=== PATIENT | female | born 1970 | race Caucasian/White ===

== ENCOUNTER 2021-06-30 13:14 | Inpatient (IN) ==
[2021-06-30] MEDS ORDERED: DECADRON IVP ONE (13:32)
[2021-06-30] MEDS ORDERED: VENTOLIN HFA (PER PUFF-WITH SPACER) IH ONE (13:32)
--- NOTE | 2021-06-30 13:37 | ED.PDOC ---
General ED Provider: Dr. DELONTE HUTTON MD Chief Complaint: Respiratory Complaint Stated Complaint: mild to mod shortness of breath and dry cough off and on getting worse since covid + diagnosed last Thursday, no covid vaccine, +obesity, not on home oxygen, [id number] 89% Time Seen by Provider: 06/30/21 13:25 Mode of Arrival: Wheelchair Information Source: Patient Primary Care Provider: ANNABELLA MOURA MD Nursing and Triage Documentation Reviewed and Agree: Yes Does patient meet sepsis criteria?: No System Inflammatory Response Syndrome: Not Applicable Sepsis Protocol: For patient's 13 years and over: Temp is 96.8 and below OR 101 and greater Pulse >90 BPM Resp >20/minute Acutely Altered Mental Status Are patient's symptoms suggestive of a new infection, such as: -Pneumonia -Skin, Soft Tissue -Endocarditis -UTI -Bone, Joint Infection -Implantable Device -Acute Abdominal Infection -Wound Infection -Meningitis -Blood Stream Catheter Infection -Unknown Review of Systems Review Of Systems Constitutional: Reports Malaise; Denies Fever Eyes: Denies Vision change Ears, Nose, Mouth, Throat: Denies Throat pain Respiratory: Reports Cough and Short of air; Denies Stridor Cardiac: Denies Chest pain GI: Denies Abdominal pain : Denies Dysuria Musculoskeletal: Denies Neck pain Skin: Denies Cyanosis Neurological: Denies Cognitive dysfunction All Other Systems: Other [facility] Medical History (Updated 06/30/21 @ 15:11 by DELONTE HUTTON MD) Obesity Osteoarthritis of right knee Female Reproductive History Menstrual Hx Hysterectomy: No Hx Tubal Ligation: No Physical Exam Physical Exam Appearance: Reports Ill-appearing Ill-appearing: Mild Pain Distress: None Eyes: Reports Conjunctiva clear ENT: Denies Rhinorrhea Neck: Supple Respiratory: Reports Airway patent and Breath sounds clear Cardiovascular: Reports RRR GI/: Reports Soft and Nontender Musculoskeletal: Reports ROM intact Skin: Reports Warm and Dry Neurological: Reports Alert and Oriented Psychiatric: Reports Affect appropriate Interpretation Radiology Interpretation Radiology Interpretation By: Radiologist Exam Interpreted: CXR Xray Comments: bilateral ground glass opacities EKG Interpretation Time of EKG #1: 15:07 Rate: Normal Rhythm: Sinus Interpretation: no stemi Critical Care Note Critical Care Note Total Critical Care Time (mins): 0 Course Course Hematology/Chemistry: 06/30/21 13:10 06/30/21 13:10 Orders, Labs, Meds: Lab Review 12/12/21 12/12/21 12/12/21 13:10 13:10 13:45 WBC 3.17 L RBC 4.60 Hgb 12.0 Hct 38.0 MCV 82.6 MCH 26.1 L MCHC 31.6 L RDW Coeff of [place] 14.6 Plt Count 216 Immature Gran % (Auto) 0.3 Neut % (Auto) 73.5 Lymph % (Auto) 16.4 [place] % (Auto) 9.5 Eos % (Auto) 0.0 Baso % (Auto) 0.3 Neut # (Auto) 2.3 Lymph # (Auto) 0.5 L [place] # (Auto) 0.3 L Eos # (Auto) 0.0 Baso # (Auto) 0.0 Immature Gran # (Auto) 0.0 Puncture Site R rad Base Excess 3.2 H O2 Saturation 96.5 ABG pH 7.52 H* ABG pCO2 32.0 L ABG pO2 76.0 L ABG HCO3 26.1 ABG Total CO2 27.1 H Vladimir Test Yes Hemoglobin 1.2 Oxyhemoglobin 94.9 L Carboxyhemoglobin 1.4 Total Hemoglobin 11.9 O2 Delivery Device Cannula Oxygen Liter Flow 2.00 Sodium 137.6 Potassium 5.23 H Chloride 103.2 Carbon Dioxide 29.3 Anion Gap 10.33 BUN 8.2 Creatinine 0.56 L Estimated GFR (MDRD) 114.00 BUN/Creatinine Ratio 14.64 Glucose 102.6 Lactic Acid Calcium 8.74 Total Bilirubin 1.18 AST 61.8 H ALT 31.4 Alkaline Phosphatase 62.9 Troponin I < 0.012 Total Protein 7.99 Albumin 4.33 Globulin 3.66 Albumin/Globulin Ratio 1.18 06/30/21 13:48 WBC RBC Hgb Hct MCV MCH MCHC RDW Coeff of [place] Plt Count Immature Gran % (Auto) Neut % (Auto) Lymph % (Auto) [place] % (Auto) Eos % (Auto) Baso % (Auto) Neut # (Auto) Lymph # (Auto) [place] # (Auto) Eos # (Auto) Baso # (Auto) Immature Gran # (Auto) Puncture Site Base Excess O2 Saturation ABG pH ABG pCO2 ABG pO2 ABG HCO3 ABG Total CO2 Vladimir Test Hemoglobin Oxyhemoglobin Carboxyhemoglobin Total Hemoglobin O2 Delivery Device Oxygen Liter Flow Sodium Potassium Chloride Carbon Dioxide Anion Gap BUN Creatinine Estimated GFR (MDRD) BUN/Creatinine Ratio Glucose Lactic Acid 0.80 Calcium Total Bilirubin AST ALT Alkaline Phosphatase Troponin I Total Protein Albumin Globulin Albumin/Globulin Ratio Orders Category Date Time Status ABG DRAW REQUEST Stat CARDIO 06/30/21 13:32 Completed EKG-(ED ONLY) Stat CARDIO 06/30/21 13:32 Completed METERED DOSE INHALATION Routine CARDIO 06/30/21 13:32 Completed OXYGEN [ED APPLY O2] .ONCE EMERGENCY 06/30/21 13:32 Active ABG COOX Stat LAB 06/30/21 13:45 Completed CBC W/ AUTO DIFF Stat LAB 06/30/21 13:10 Completed CMP [COMPREHENSIVE METABOLIC PANEL] Stat LAB 06/30/21 13:10 Completed LACTIC ACID Stat LAB 06/30/21 13:48 Completed TROPONIN I Stat LAB 06/30/21 13:10 Completed Albuterol Inhaler(with Spacer) [Ventolin Hfa (Per Puff- MEDS 06/30/21 13:32 Discontinued with Spacer)] 2 puff IH ONCE ONE Dexamethasone Sod Phosphate [Decadron] MEDS 06/30/21 13:32 Discontinued 6 mg IVP ONCE ONE CHEST, 1V AP ONLY Stat RADS 06/30/21 13:32 Completed Medications Discontinued Medications Generic Name Dose Route Start Last Admin Trade Name Freq PRN Reason Stop Dose Admin Albuterol Sulfate 2 puff 06/30/21 13:32 06/30/21 13:57 Albuterol Sulfate (Ventolin Hfa) 18 Gm 1 Puff With Spacer IH 06/30/21 13:33 2 puff ONCE ONE Administration Dexamethasone Sodium Phosphate 6 mg 06/30/21 13:32 06/30/21 13:38 Dexamethasone Sod Phos 10 Mg/Ml Inj IVP 06/30/21 13:33 10 mg ONCE ONE Administration Vital Signs: Temp Pulse Resp BP Pulse Ox 06/30/21 14:19 77 21 166/87 H 97 06/30/21 13:50 86 20 166/80 H 97 06/30/21 13:15 98.5 F 86 24 165/94 H 92 L Discharge Plan Discharge Patient Disposition: ADMITTED INPATIENT Discharge Problem: Pneumonia due to COVID-19 virus Prescriptions: No Action No Reported Medications 0 Qty: 0 0RF ED Provider: DELONTE HUTTON Condition: Stable Physician Progress Note: []pt admitted to covid unit with covid pneumonia and hypoxia
[2021-06-30 13:41] LABS: BASOPHILS % (AUTO) 0.3 % (0.0-3.0); IMMATURE GRANULOCYTE % (AUTO) 0.3 % (0.0-5.0); LYMPHOCYTES % (AUTO) 16.4 (10.0-50.0); MEAN CORPUSCULAR HEMOGLOBIN 26.1 pg (27.0-31.0); MEAN CORPUSCULAR HGB CONC 31.6 (31.8-35.4); MEAN CORPUSCULAR VOLUME 82.6 fl (81.0-99.0); MONOCYTES # (AUTO) 0.3 K/uL (0.4-2.0); MONOCYTES % (AUTO) 9.5 (0-10); NEUTROPHILS # (AUTO) 2.3 K/ul (2.0-6.9); NEUTROPHILS % (AUTO) 73.5 % (42.2-75.2); PLATELET COUNT 216 10^3/uL (140-440); RDW COEFFICIENT OF VARIATION 14.6 % (11.6-14.8); WHITE BLOOD COUNT 3.17 K/ul (4.6-10.2)
[2021-06-30 13:53] LABS: ABG O2 HGB 94.9 % (95-100); BEecf 3.2 (-2.0-3.0); COHb 1.4 (0.5-1.5); HCO3 26.1 (21-28); MetHb 1.2 (0-1.5); TCO2 27.1 (19-24); sO2 96.5 % (94-98); tHb 11.9 g/dl (11.7-17.4)
[2021-06-30 13:55] LABS: ABG PH 7.52 (7.35-7.45)
[2021-06-30 13:58] LABS: ALANINE AMINOTRANSFERASE 31.4 U/L (0-35); ALBUMIN 4.33 g/dL (3.5-5.0); ALKALINE PHOSPHATASE 62.9 U/L (38-126); ASPARTATE AMINO TRANSFERASE 61.8 U/L (14-36); BILIRUBIN,TOTAL 1.18 mg/dL (0.2-1.3); BLOOD UREA NITROGEN 8.2 mg/dL (7-17); CALCIUM 8.74 mg/dL (8.4-10.2); CARBON DIOXIDE 29.3 mmol/L (22-30.0); CHLORIDE 103.2 mmol/L (98-107); CREATININE 0.56 mg/dL (0.60-1.30); GLUCOSE 102.6 mg/dL (74-106); POTASSIUM 5.23 mmol/L (3.5-5.1); SODIUM 137.6 mmol/L (134.5-145); TOTAL PROTEIN 7.99 g/dL (6.3-8.2)
--- NOTE | 2021-06-30 13:58 | DI ---
EXAM: Single frontal view of the chest HISTORY: COVID-19 positive patient with shortness of breath. COMPARISON: None FINDINGS: Cardiomediastinal silhouette is normal. There is patchy ground-glass and both lungs most p ronounced in the dependent lungs. There is no pneumothorax or effusion. There is no consolidation, nodule or mass. There is degenerative disease of the spine. IMPRESSION: Patchy ground-glass opacities are suggestive of atypical infection.
[2021-06-30 14:02] LABS: LYMPHOCYTES # (AUTO) 0.5 K/uL (0.60-3.4)
[2021-06-30 14:27] LABS: TROPONIN I < 0.012 ng/ml (0.0000-0.120)
[2021-06-30] MEDS ORDERED: ATROPINE SULFATE PFS IVP PRN (15:14)
[2021-06-30] MEDS ORDERED: NITROSTAT SL PRN (15:14)
[2021-06-30] MEDS ORDERED: TYLENOL PO PRN (15:14)
[2021-06-30] MEDS ORDERED: VEKLURY 200 MG in SODIUM CHLORIDE 250 ML IV ONE (16:00)
[2021-06-30 16:15] VITALS: BMI 42.3
[2021-06-30] MEDS ORDERED: ZOFRAN ODT PO PRN (16:38)
[2021-06-30] MEDS: SODIUM CHLORIDE 1,000 ML IV SCH (16:49)
[2021-06-30] MEDS: ROCEPHIN 1 GM/50 ML D5W 1 GM/50 ML BAG IV SCH (16:49)
[2021-06-30] MEDS: VITAMIN D PO SCH (16:50)
[2021-06-30] MEDS: PEPCID PO SCH (16:50)
[2021-06-30] MEDS: ZINC-220 PO SCH (16:50)
[2021-06-30] MEDS: ZITHROMAX PO SCH (16:50)
[2021-06-30] MEDS: LOVENOX SUBCUT SCH (16:52)
[2021-06-30 16:55] LABS: PROTHROMBIN TIME 9.3 SEC (9.3-11.0)
[2021-06-30 18:33] LABS: BILIRUBIN,URINE Negative (NEGATIVE); CLARITY,URINE Clear (CLEAR); COLOR,URINE Yellow (YELLOW); GLUCOSE, URINE (UA) Negative (NEGATIVE); KETONES,URINE 3+ (NEGATIVE); LEUKOCYTE ESTERASE ,URINE Negative (NEGATIVE); NITRITE,URINE Negative (NEGATIVE); PROTEIN,URINE Negative (NEGATIVE); URINE, BLOOD Trace-lysed (NEGATIVE)
[2021-06-30 18:40] LABS: URINE RBC, MICROSCOPIC 0-2 (0-2)
[2021-06-30 18:41] LABS: BACTERIA,URINE 1+ (NOT PRESENT)
[2021-06-30 21:45] LABS: CREATINE KINASE 137.1 U/L (30-135)
[2021-06-30 21:58] LABS: TROPONIN I < 0.012 ng/ml (0.0000-0.120)
[2021-07-01 04:51] LABS: ABG O2 HGB 91.3 % (95-100); BEecf 1.5 (-2.0-3.0); COHb 2.1 (0.5-1.5); HCO3 24.2 (21-28); MetHb 1.4 (0-1.5); TCO2 25.1 (19-24); tHb 14.5 g/dl (11.7-17.4)
[2021-07-01 04:52] LABS: ABG PH 7.53 (7.35-7.45)
[2021-07-01 05:15] LABS: HEMATOCRIT 34.5 % (37.0-47.0); HEMOGLOBIN 11.3 g/dl (12.0-16.0); MEAN CORPUSCULAR HEMOGLOBIN 26.9 pg (27.0-31.0); MEAN CORPUSCULAR HGB CONC 32.8 (31.8-35.4); MEAN CORPUSCULAR VOLUME 82.1 fl (81.0-99.0); PLATELET COUNT 229 10^3/uL (140-440); RDW COEFFICIENT OF VARIATION 14.6 % (11.6-14.8); WHITE BLOOD COUNT 2.02 K/ul (4.6-10.2)
[2021-07-01 05:23] LABS: CALCIUM 8.71 mg/dL (8.4-10.2); CARBON DIOXIDE 25.9 mmol/L (22-30.0); CREATININE 0.59 mg/dL (0.60-1.30); GLUCOSE 111.1 mg/dL (74-106); POTASSIUM 3.8 mmol/L (3.5-5.1); SODIUM 139.5 mmol/L (134.5-145)
[2021-07-01 05:28] LABS: PROTHROMBIN TIME 9.5 SEC (9.3-11.0)
[2021-07-01 05:38] LABS: ANISOCYTOSIS NOT PRESENT (NOT PRESENT)
[2021-07-01] MEDS: PEPCID PO SCH ×2 (05:50→17:33)
[2021-07-01] MEDS: SODIUM CHLORIDE 1,000 ML IV SCH ×2 (05:50→21:54)
[2021-07-01 05:54] LABS: FERRITIN 52.6 ng/mL (11.1-264.0)
[2021-07-01] MEDS: VENTOLIN HFA (PER PUFF-WITH SPACER) IH PRN (06:20)
[2021-07-01 08:32] LABS: ALANINE AMINOTRANSFERASE 31.2 U/L (0-35); ALBUMIN 3.8 g/dL (3.5-5.0); ALKALINE PHOSPHATASE 78.8 U/L (38-126); ASPARTATE AMINO TRANSFERASE 34.4 U/L (14-36); BILIRUBIN,TOTAL 0.42 mg/dL (0.2-1.3); BLOOD UREA NITROGEN 7.5 mg/dL (7-17); CALCIUM 8.78 mg/dL (8.4-10.2); CARBON DIOXIDE 25.9 mmol/L (22-30.0); CHLORIDE 108.2 mmol/L (98-107); CREATININE 0.6 mg/dL (0.60-1.30); GLUCOSE 97.8 mg/dL (74-106); POTASSIUM 3.68 mmol/L (3.5-5.1); SODIUM 140.6 mmol/L (134.5-145); TOTAL PROTEIN 6.93 g/dL (6.3-8.2)
[2021-07-01] MEDS: VITAMIN D PO SCH (08:40)
[2021-07-01] MEDS: ZINC-220 PO SCH (08:40)
[2021-07-01] MEDS: ZITHROMAX PO SCH (08:40)
[2021-07-01] MEDS: LOVENOX SUBCUT SCH (08:41)
[2021-07-01] MEDS: DECADRON IVP SCH (08:42)
[2021-07-01] MEDS: ROCEPHIN 1 GM/50 ML D5W 1 GM/50 ML BAG IV SCH (08:42)
[2021-07-01] MEDS ORDERED: VEKLURY 200 MG in SODIUM CHLORIDE 250 ML IV ONE (09:00)
--- NOTE | 2021-07-01 10:39 | DI ---
EXAM: Frontal view of the chest. HISTORY: Shortness of breath. COMPARISON: Chest radiograph 06/30/2021. FINDINGS: Normal heart size. Bilateral peripheral basilar predominant ground-glass opacities appear unchanged. No visible effusion or pneumothorax. No acute osseous abnormality. IMPRESSION: 1. Unchanged appearance of bilateral pneumonia.
--- NOTE | 2021-07-01 16:51 | PCM.PROG ---
pt improving, nad, vss, alert and oriented heent: eomi, buccal moist lungs: bilateral rhonchi heart: RRR abdomen: soft and nontender extremities: warm and dry, pulses intact Plan: start Remdesivir, continue covid protochol including albuterol q6 prn, dexamethasone, Rocephin and zithromax Care to Dr Mckeon at 19:00
[2021-07-02] MEDS: VENTOLIN HFA (PER PUFF-WITH SPACER) IH PRN ×2 (02:40→14:55)
[2021-07-02 05:10] LABS: BASOPHILS % (AUTO) 0.2 % (0.0-3.0); HEMATOCRIT 36.5 % (37.0-47.0); HEMOGLOBIN 11.5 g/dl (12.0-16.0); IMMATURE GRANULOCYTE % (AUTO) 0.6 % (0.0-5.0); LYMPHOCYTES # (AUTO) 1.1 K/uL (0.60-3.4); MEAN CORPUSCULAR HEMOGLOBIN 26.4 pg (27.0-31.0); MEAN CORPUSCULAR HGB CONC 31.5 (31.8-35.4); MEAN CORPUSCULAR VOLUME 83.7 fl (81.0-99.0); MONOCYTES # (AUTO) 0.5 K/uL (0.4-2.0); MONOCYTES % (AUTO) 8.6 (0-10); NEUTROPHILS # (AUTO) 3.9 K/ul (2.0-6.9); NEUTROPHILS % (AUTO) 70.6 % (42.2-75.2); PLATELET COUNT 266 10^3/uL (140-440); RDW COEFFICIENT OF VARIATION 14.6 % (11.6-14.8); RED BLOOD COUNT 4.36 10^6/ul (4.20-5.40); WHITE BLOOD COUNT 5.45 K/ul (4.6-10.2)
[2021-07-02 05:24] LABS: ALANINE AMINOTRANSFERASE 30.1 U/L (0-35); ALBUMIN 3.52 g/dL (3.5-5.0); ALKALINE PHOSPHATASE 67.8 U/L (38-126); ASPARTATE AMINO TRANSFERASE 25.7 U/L (14-36); BILIRUBIN,TOTAL 0.3 mg/dL (0.2-1.3); BLOOD UREA NITROGEN 12.5 mg/dL (7-17); CALCIUM 8.75 mg/dL (8.4-10.2); CHLORIDE 109.8 mmol/L (98-107); CREATININE 0.7 mg/dL (0.60-1.30); GLUCOSE 87.9 mg/dL (74-106); POTASSIUM 3.5 mmol/L (3.5-5.1); SODIUM 140.3 mmol/L (134.5-145); TOTAL PROTEIN 6.47 g/dL (6.3-8.2)
[2021-07-02 05:30] LABS: PROTHROMBIN TIME 9.8 SEC (9.3-11.0)
[2021-07-02] MEDS: PEPCID PO SCH ×2 (05:53→17:06)
[2021-07-02 06:15] LABS: C-REACTIVE PROTEIN 30 mg/L (0-10)
[2021-07-02 06:45] LABS: ABG O2 HGB 94.6 % (95-100); ABG PH 7.46 (7.35-7.45); BEecf 1.8 (-2.0-3.0); COHb 2.1 (0.5-1.5); HCO3 25.6 (21-28); MetHb 0.5 (0-1.5); TCO2 26.7 (19-24); sO2 95.1 % (94-98); tHb 9.3 g/dl (11.7-17.4)
[2021-07-02] MEDS: LOVENOX SUBCUT SCH (08:54)
[2021-07-02] MEDS: ZITHROMAX PO SCH (08:54)
[2021-07-02] MEDS: ROCEPHIN 1 GM/50 ML D5W 1 GM/50 ML BAG IV SCH (08:54)
[2021-07-02] MEDS: ZINC-220 PO SCH (08:54)
[2021-07-02] MEDS: VITAMIN D PO SCH (08:54)
[2021-07-02] MEDS: VEKLURY 100 MG in SODIUM CHLORIDE 250 ML IV SCH (11:05)
[2021-07-02] MEDS: DECADRON IVP SCH (12:04)
[2021-07-02] MEDS: SODIUM CHLORIDE 1,000 ML IV SCH (12:35)
--- NOTE | 2021-07-02 15:24 | DI ---
EXAM: Frontal view of the chest. HISTORY: Shortness of breath. COMPARISON: Chest radiograph 07/19/2021. FINDINGS: Normal heart size. Slightly worsened appearance of basilar predominant bilateral ground-glass opacities. No visible effusion or pneumothorax. No acute osseous abnormality. IMPRESSION: 1. Slightly increased bilateral opacities consistent with pneumonia.
[2021-07-03] MEDS: SODIUM CHLORIDE 1,000 ML IV SCH ×2 (01:56→17:03)
[2021-07-03] MEDS: VENTOLIN HFA (PER PUFF-WITH SPACER) IH PRN ×2 (05:10→23:31)
[2021-07-03 05:45] LABS: BASOPHILS % (AUTO) 0.5 % (0.0-3.0); HEMATOCRIT 34.3 % (37.0-47.0); IMMATURE GRANULOCYTE % (AUTO) 0.5 % (0.0-5.0); LYMPHOCYTES # (AUTO) 1.1 K/uL (0.60-3.4); LYMPHOCYTES % (AUTO) 28.5 (10.0-50.0); MEAN CORPUSCULAR HEMOGLOBIN 26.4 pg (27.0-31.0); MEAN CORPUSCULAR HGB CONC 32.1 (31.8-35.4); MEAN CORPUSCULAR VOLUME 82.5 fl (81.0-99.0); MONOCYTES # (AUTO) 0.4 K/uL (0.4-2.0); MONOCYTES % (AUTO) 11.1 (0-10); NEUTROPHILS # (AUTO) 2.2 K/ul (2.0-6.9); NEUTROPHILS % (AUTO) 59.4 % (42.2-75.2); PLATELET COUNT 264 10^3/uL (140-440); RDW COEFFICIENT OF VARIATION 14.5 % (11.6-14.8); RED BLOOD COUNT 4.16 10^6/ul (4.20-5.40); WHITE BLOOD COUNT 3.68 K/ul (4.6-10.2)
[2021-07-03 05:55] LABS: ALANINE AMINOTRANSFERASE 24.8 U/L (0-35); ALBUMIN 3.45 g/dL (3.5-5.0); ALKALINE PHOSPHATASE 62.2 U/L (38-126); ASPARTATE AMINO TRANSFERASE 20.7 U/L (14-36); BILIRUBIN,TOTAL 0.38 mg/dL (0.2-1.3); BLOOD UREA NITROGEN 10.8 mg/dL (7-17); CALCIUM 8.59 mg/dL (8.4-10.2); CARBON DIOXIDE 20.7 mmol/L (22-30.0); CHLORIDE 110.3 mmol/L (98-107); CREATININE 0.55 mg/dL (0.60-1.30); GLUCOSE 94.2 mg/dL (74-106); POTASSIUM 3.66 mmol/L (3.5-5.1); TOTAL PROTEIN 6.46 g/dL (6.3-8.2)
[2021-07-03] MEDS: PEPCID PO SCH ×2 (06:03→17:03)
[2021-07-03 06:27] LABS: FERRITIN 46.6 ng/mL (11.1-264.0)
[2021-07-03 06:34] LABS: ABG O2 HGB 94.9 % (95-100); ABG PH 7.45 (7.35-7.45); BEecf 0.3 (-2.0-3.0); COHb 2.1 (0.5-1.5); HCO3 24.3 (21-28); MetHb 0.6 (0-1.5); TCO2 25.4 (19-24); sO2 96.5 % (94-98)
--- NOTE | 2021-07-03 08:17 | PCM.PROG ---
Date Seen by Provider: 07/03/21 Time Seen by Provider: 08:16 Subjective: Patient was admitted 3 days ago with COVID pneumonia. She states that she is feeling better but does still have some chest burning mostly when she coughs. Also states that he legs have been more swollen due to not moving much. Does not take any medications at home and has not been vaccinated. Objective: Vitals: T=98.2 F, P=67, R=20, JP=913/70, SPO2=97 HEENT: [mucus membranes moist ] Lungs: [Lower lower Rales bilaterally] CVS: [Regular S1 and S2 only ] Abdomen: [Obese] Extremities: [2 +pitting edema ] Neurological: [AAO x 3 moves all extremities, no focal deficites] Skin: [No skin lesions] Lab/Tests/Diagnostic Imaging: [Reviewed noted elevated D-Dimer] (1) Pneumonia due to COVID-19 virus: Status: Acute Code(s): U07.1 - COVID-19; J12.82 - Pneumonia due to coronavirus disease 2019 SNOMED Code(s): 701675010537527102 Assessment: Improving but continues to be on oxygen. has completed 3 days of zithromax and 3 days of Rochephin. (2) Elevated d-dimer: Status: Acute Code(s): R79.89 - Other specified abnormal findings of blood chemistry SNOMED Code(s): 534063350 Assessment: in the setting of COVID-19 pneumonia and lower extremity edema need to rule out PE (3) Lower extremity edema: Status: Acute Code(s): R60.0 - Localized edema SNOMED Code(s): 899592255 Assessment: Bilateral Lower extremity edema due to immobility. Plan: continue Remdesivir and dexamethasone Order CT chest PE protochol Increase Lovenox to 125mg q12 hr until discharged Continue Rocephin for the next 5 days Give one time Lasix IV 20mg and reassess Edema in the morning.
[2021-07-03] MEDS ORDERED: LASIX IVP ONE (08:29)
[2021-07-03] MEDS ORDERED: LOVENOX SUBCUT SCH (09:00)
[2021-07-03] MEDS: ROCEPHIN 1 GM/50 ML D5W 1 GM/50 ML BAG IV SCH (09:26)
[2021-07-03] MEDS: DECADRON IVP SCH (09:31)
[2021-07-03] MEDS: VITAMIN D PO SCH (10:25)
[2021-07-03] MEDS: ZINC-220 PO SCH (10:25)
--- NOTE | 2021-07-03 10:42 | CT ---
EXAM: CT Angiogram Chest. HISTORY: COVID-19 pneumonia. Elevated D-dimer. COMPARISON: Radiograph 1 day prior. TECHNIQUE: Multiple axial images of the chest were obtained following intravenous administration of 125 mL Omnipaque 350, low osmolar. Images were reformatted in the sagittal and coronal plane. 3-D a nd maximum intensity projection reformatted images were created on an independent workstation. FINDINGS: No pulmonary arterial filling defect. There are multiple mediastinal and hilar lymph nodes. The largest noncalcified nodes are the right h ilum measuring 1.6 cm on axial image 39. Heart size normal. No pericardial effusion. There are bilateral nodular ground-glass opacities thro ughout both lungs. No pleural effusion or pneumothorax. Limited images of the upper abdomen demonstrate a 2.9 x 2 cm fluid density left adrenal nodule on axi al image 89. There is a 2 x 1.3 cm fluid density right adrenal nodule on axial image 100. Liver and spleen are enlarged. Small hiatal hernia. Degenerative changes in the spine. IMPRESSION: 1. No pulmonary embolus. 2. Extensive bilateral pneumonia, consistent with COVID-19. 3. Right hilar lymphadenopathy likely reactive. 4. Hepatosplenomegaly. 5. Benign bilateral adrenal adenomas. All CT scans are performed using dose optimization techniques as appropriate to the performed exam an d include at least one of the following: Automated exposure control, adjustment of the mA and/or kV according t o size, and the use of iterative reconstruction technique.
[2021-07-03] MEDS: VEKLURY 100 MG in SODIUM CHLORIDE 250 ML IV SCH (12:30)
--- NOTE | 2021-07-03 16:21 | PCM.PROG ---
Date Seen by Provider: 07/03/21 Time Seen by Provider: 13:00 Subjective: 51 y/o female with COVID pneumonia and hypoxia requiring oxygen. CC was of dyspnea. HPI- 51 y/o female with hypoxia due to COVID pneumonia. In addition to oxygen, receiving IV remdesivir. She had been ill for several days, but now feeling b marshall in the hospital. Subj - Still with some dypnea, but getting better. ROS - No LACY, ST, fever, chest pain, GI pain or vomiting/diarrhea. Objective: Vitals: T=98.2 F, P=70, R=19, KV=452/63, SPO2=96 HEENT: [WNL] Neck: Supple Lungs: [Few rhonchi, no wheezes, good air exchange] CVS: [RRR without m] Abdomen: [soft] Extremities: intact wihout edema] Neurological: Intact] Skin: [WNL] Lab/Tests/Diagnostic Imaging: [] See reports, no acute changes of concern. (1) Pneumonia due to COVID-19 virus: Status: Acute Code(s): U07.1 - COVID-19; J12.82 - Pneumonia due to coronavirus disease 2018 SNOMED Code(s): 210262265676136911 Assessment: Clinical improvement on oxygen and rem. Nurses report 3 more days of rem. pl anned. On lovenox per protocol for DVT prophy and GI prophy not a clinical concern. (2) Elevated d-dimer: Status: Acute Code(s): R79.89 - Other specified abnormal findings of blood chemistry SNOMED Code(s): 771927942 Assessment: Associated with the COVID, no signs of PE, on lovenox prophy dose. (3) Lower extremity edema: Status: Acute Code(s): R60.0 - Localized edema SNOMED Code(s): 722788250 Assessment: chronic, not a sig. issue Plan: Continue current therapy, nurses ordered standard labs.
[2021-07-03] MEDS: LOVENOX SUBCUT SCH (20:58)
[2021-07-04] MEDS: VENTOLIN HFA (PER PUFF-WITH SPACER) IH PRN ×2 (04:40→14:28)
[2021-07-04] MEDS: PEPCID PO SCH ×2 (05:45→18:16)
[2021-07-04] MEDS: SODIUM CHLORIDE 1,000 ML IV SCH ×2 (06:20→22:29)
[2021-07-04 07:58] LABS: ALANINE AMINOTRANSFERASE 25.5 U/L (0-35); ALBUMIN 3.46 g/dL (3.5-5.0); ALKALINE PHOSPHATASE 66.3 U/L (38-126); ASPARTATE AMINO TRANSFERASE 20.8 U/L (14-36); BILIRUBIN,TOTAL 0.32 mg/dL (0.2-1.3); CALCIUM 8.7 mg/dL (8.4-10.2); CARBON DIOXIDE 27.6 mmol/L (22-30.0); CHLORIDE 107.5 mmol/L (98-107); CREATININE 0.66 mg/dL (0.60-1.30); GLUCOSE 89.3 mg/dL (74-106); POTASSIUM 3.35 mmol/L (3.5-5.1); SODIUM 140.6 mmol/L (134.5-145); TOTAL PROTEIN 6.41 g/dL (6.3-8.2)
[2021-07-04] MEDS: ROCEPHIN 1 GM/50 ML D5W 1 GM/50 ML BAG IV SCH (08:06)
[2021-07-04] MEDS: DECADRON IVP SCH (08:06)
[2021-07-04] MEDS: VITAMIN D PO SCH (08:06)
[2021-07-04] MEDS: LOVENOX SUBCUT SCH ×2 (08:07→20:24)
[2021-07-04] MEDS: ZINC-220 PO SCH (08:07)
[2021-07-04 09:36] LABS: PROTHROMBIN TIME 10.8 SEC (9.3-11.0)
[2021-07-04] MEDS: VEKLURY 100 MG in SODIUM CHLORIDE 250 ML IV SCH (12:12)
[2021-07-05] MEDS: VENTOLIN HFA (PER PUFF-WITH SPACER) IH PRN ×2 (04:37→20:55)
[2021-07-05] MEDS: PEPCID PO SCH ×2 (05:45→16:47)
[2021-07-05 06:29] LABS: BASOPHILS % (AUTO) 0.2 % (0.0-3.0); EOSINOPHILS % (AUTO) 0.6 % (0.0-7.0); HEMATOCRIT 34.1 % (37.0-47.0); HEMOGLOBIN 10.9 g/dl (12.0-16.0); IMMATURE GRANULOCYTE % (AUTO) 0.8 % (0.0-5.0); LYMPHOCYTES # (AUTO) 1.4 K/uL (0.60-3.4); LYMPHOCYTES % (AUTO) 28.8 (10.0-50.0); MEAN CORPUSCULAR HEMOGLOBIN 26.6 pg (27.0-31.0); MEAN CORPUSCULAR VOLUME 83.2 fl (81.0-99.0); MONOCYTES # (AUTO) 0.5 K/uL (0.4-2.0); MONOCYTES % (AUTO) 9.3 (0-10); NEUTROPHILS # (AUTO) 2.9 K/ul (2.0-6.9); NEUTROPHILS % (AUTO) 60.3 % (42.2-75.2); PLATELET COUNT 376 10^3/uL (140-440); RDW COEFFICIENT OF VARIATION 14.4 % (11.6-14.8); WHITE BLOOD COUNT 4.83 K/ul (4.6-10.2)
[2021-07-05 06:44] LABS: PROTHROMBIN TIME 10.4 SEC (9.3-11.0)
[2021-07-05 06:48] LABS: ALANINE AMINOTRANSFERASE 25.3 U/L (0-35); ALBUMIN 3.64 g/dL (3.5-5.0); ALKALINE PHOSPHATASE 65.7 U/L (38-126); ASPARTATE AMINO TRANSFERASE 26.1 U/L (14-36); BILIRUBIN,TOTAL 0.33 mg/dL (0.2-1.3); BLOOD UREA NITROGEN 12.6 mg/dL (7-17); CALCIUM 8.93 mg/dL (8.4-10.2); CARBON DIOXIDE 27.7 mmol/L (22-30.0); CHLORIDE 108.2 mmol/L (98-107); CREATININE 0.67 mg/dL (0.60-1.30); GLUCOSE 85.4 mg/dL (74-106); POTASSIUM 3.59 mmol/L (3.5-5.1); TOTAL PROTEIN 6.63 g/dL (6.3-8.2)
[2021-07-05 06:49] LABS: SODIUM 140.3 mmol/L (134.5-145)
--- NOTE | 2021-07-05 08:29 | PCM.PROG ---
Date Seen by Provider: 07/05/21 Time Seen by Provider: 08:05 Subjective: Pt was admitted for Covid and has been improving daily. Still with cough and mild SOB. Still on O2. Denies any F/C/CP/AP. Completing her infusion today. Objective: Vitals: T=98.0 F, P=63, R=18, WQ=149/95, SPO2=96 Lungs: No respiratory distress with occasional post tussive rales CVS: RRR Abdomen: soft, non tender Neurological: A+O x3 Lab/Tests/Diagnostic Imaging: Hb of 10.9 which is stable, chems are unremarkable. D-dimer is 841 and improving. (1) Pneumonia due to COVID-19 virus: Status: Acute Code(s): U07.1 - COVID-19; J12.82 - Pneumonia due to coronavirus disease 2019 SNOMED Code(s): 287843611384248631 (2) Elevated d-dimer: Status: Acute Code(s): R79.89 - Other specified abnormal findings of blood chemistry SNOMED Code(s): 030292101 (3) Lower extremity edema: Status: Acute Code(s): R60.0 - Localized edema SNOMED Code(s): 209261942 Plan: 1. Covid: Pt finishing infusion today. will start to ween O2 to see how she does. Will start 3 step to see if she qualifies for O2 if fails weening from O2. Anticipate DC tomorrow or next day.
[2021-07-05] MEDS: VITAMIN D PO SCH (09:53)
[2021-07-05] MEDS: ZINC-220 PO SCH (09:53)
[2021-07-05] MEDS: LOVENOX SUBCUT SCH ×2 (09:53→20:46)
[2021-07-05] MEDS: DECADRON IVP SCH (09:54)
[2021-07-05] MEDS: ROCEPHIN 1 GM/50 ML D5W 1 GM/50 ML BAG IV SCH (09:55)
[2021-07-05] MEDS: SODIUM CHLORIDE 1,000 ML IV SCH (11:42)
[2021-07-05] MEDS: VEKLURY 100 MG in SODIUM CHLORIDE 250 ML IV SCH (11:42)
[2021-07-06] MEDS: SODIUM CHLORIDE 1,000 ML IV SCH (02:24)
[2021-07-06 05:36] LABS: BASOPHILS % (AUTO) 0.4 % (0.0-3.0); EOSINOPHILS % (AUTO) 0.4 % (0.0-7.0); HEMATOCRIT 32.5 % (37.0-47.0); HEMOGLOBIN 10.5 g/dl (12.0-16.0); IMMATURE GRANULOCYTE % (AUTO) 0.5 % (0.0-5.0); LYMPHOCYTES # (AUTO) 1.5 K/uL (0.60-3.4); LYMPHOCYTES % (AUTO) 26.4 (10.0-50.0); MEAN CORPUSCULAR HEMOGLOBIN 26.6 pg (27.0-31.0); MEAN CORPUSCULAR HGB CONC 32.3 (31.8-35.4); MEAN CORPUSCULAR VOLUME 82.3 fl (81.0-99.0); MONOCYTES # (AUTO) 0.5 K/uL (0.4-2.0); MONOCYTES % (AUTO) 8.9 (0-10); NEUTROPHILS # (AUTO) 3.5 K/ul (2.0-6.9); NEUTROPHILS % (AUTO) 63.4 % (42.2-75.2); PLATELET COUNT 373 10^3/uL (140-440); RDW COEFFICIENT OF VARIATION 14.3 % (11.6-14.8); RED BLOOD COUNT 3.95 10^6/ul (4.20-5.40)
[2021-07-06] MEDS: PEPCID PO SCH (05:47)
[2021-07-06 06:06] LABS: ALBUMIN 3.2 g/dL (3.5-5.0); BILIRUBIN,TOTAL 0.4 mg/dL (0.2-1.3); CALCIUM 8.5 mg/dL (8.4-10.2); CREATININE 0.7 mg/dL (0.60-1.30); POTASSIUM 3.7 mmol/L (3.5-5.1)
[2021-07-06 06:08] VITALS: BP 127/69; TEMP 97.8
[2021-07-06] MEDS: ROCEPHIN 1 GM/50 ML D5W 1 GM/50 ML BAG IV SCH (08:52)
[2021-07-06] MEDS: LOVENOX SUBCUT SCH (08:53)
[2021-07-06] MEDS: DECADRON IVP SCH (08:54)
[2021-07-06] MEDS: VITAMIN D PO SCH (08:54)
[2021-07-06] MEDS: ZINC-220 PO SCH (08:54)
--- NOTE | 2021-07-06 16:54 | PCM.DC ---
Final Diagnosis: Admit date - 06/30 2021 Discharge date - 07/06/2021 Admit Dx - COVID pneumonia with hypoxia. Discharge Dx - COVID pneumonia with hypoxia. (1) Pneumonia due to COVID-19 virus: Status: Acute Code(s): U07.1 - COVID-19; J12.82 - Pneumonia due to coronavirus disease 2018 SNOMED Code(s): 765375884458390357 (2) Elevated d-dimer: Status: Acute Code(s): R79.89 - Other specified abnormal findings of blood chemistry SNOMED Code(s): 663736341 (3) Lower extremity edema: Status: Acute Code(s): R60.0 - Localized edema SNOMED Code(s): 558556588 Reason for Hospitalization: HPI - Admit through ED with COVID for a few days, then hypoxia with oxygen sat in 80's requiring oxygen. Prognosis/Condition at Discharge: Good. Stable. Medications at Discharge: Ambulatory Orders Medication Instructions Recorded albuterol sulfate 90 mcg/actuation 2 puff INHALATION QID PRN #8.5 g 07/06/21 aerosol inhaler Lab/Diagnostics: Laboratory Tests 06/30/21 06/30/21 06/30/21 13:10 13:10 13:10 WBC 3.17 L RBC 4.60 Hgb 12.0 Hct 38.0 MCV 82.6 MCH 26.1 L MCHC 31.6 L RDW Coeff of [place] 14.6 Plt Count 216 Immature Gran % (Auto) 0.3 Neut % (Auto) 73.5 Lymph % (Auto) 16.4 [place] % (Auto) 9.5 Eos % (Auto) 0.0 Baso % (Auto) 0.3 Neut # (Auto) 2.3 Lymph # (Auto) 0.5 L [place] # (Auto) 0.3 L Eos # (Auto) 0.0 Baso # (Auto) 0.0 Immature Gran # (Auto) 0.0 Neutrophils % (Manual) Lymphocytes % (Manual) Monocytes % (Manual) Myelocytes % Anisocytosis PT INR Puncture Site Base Excess O2 Saturation ABG pH ABG pCO2 ABG pO2 ABG HCO3 ABG Total CO2 Vladimir Test Hemoglobin Oxyhemoglobin Carboxyhemoglobin Total Hemoglobin O2 Delivery Device Oxygen Liter Flow FiO2 % Sodium 137.6 Potassium 5.23 H Chloride 103.2 Carbon Dioxide 29.3 Anion Gap 10.33 BUN 8.2 Creatinine 0.56 L Estimated GFR (MDRD) 114.00 BUN/Creatinine Ratio 14.64 Glucose 102.6 Lactic Acid Calcium 8.74 Ferritin Total Bilirubin 1.18 AST 61.8 H ALT 31.4 Alkaline Phosphatase 62.9 Lactate Dehydrogenase Total Creatine Kinase CK-MB (CK-2) CK-MB (CK-2) % Troponin I < 0.012 C-Reactive Prot, Quant Total Protein 7.99 Albumin 4.33 Globulin 3.66 Albumin/Globulin Ratio 1.18 D-Dimer 1315.13 H Urine Color Urine Clarity Urine pH Ur Specific [place] Urine Protein Urine Glucose (UA) Urine Ketones Urine Blood Urine Nitrite Urine Bilirubin Urine Urobilinogen Ur Leukocyte Esterase Urine Microscopic RBC Ur Squamous Epith Cells Urine Bacteria SARS CoV-2 RNA Rapid KEVIN 06/30/21 06/30/21 06/30/21 13:10 13:34 13:45 WBC RBC Hgb Hct MCV MCH MCHC RDW Coeff of [place] Plt Count Immature Gran % (Auto) Neut % (Auto) Lymph % (Auto) [place] % (Auto) Eos % (Auto) Baso % (Auto) Neut # (Auto) Lymph # (Auto) [place] # (Auto) Eos # (Auto) Baso # (Auto) Immature Gran # (Auto) Neutrophils % (Manual) Lymphocytes % (Manual) Monocytes % (Manual) Myelocytes % Anisocytosis PT 9.3 INR 0.88 Puncture Site R rad Base Excess 3.2 H O2 Saturation 96.5 ABG pH 7.52 H* ABG pCO2 32.0 L ABG pO2 76.0 L ABG HCO3 26.1 ABG Total CO2 27.1 H Vladimir Test Yes Hemoglobin 1.2 Oxyhemoglobin 94.9 L Carboxyhemoglobin 1.4 Total Hemoglobin 11.9 O2 Delivery Device Cannula Oxygen Liter Flow 2.00 FiO2 % Sodium Potassium Chloride Carbon Dioxide Anion Gap BUN Creatinine Estimated GFR (MDRD) BUN/Creatinine Ratio Glucose Lactic Acid Calcium Ferritin Total Bilirubin AST ALT Alkaline Phosphatase Lactate Dehydrogenase Total Creatine Kinase CK-MB (CK-2) CK-MB (CK-2) % Troponin I C-Reactive Prot, Quant Total Protein Albumin Globulin Albumin/Globulin Ratio D-Dimer Urine Color Urine Clarity Urine pH Ur Specific [place] Urine Protein Urine Glucose (UA) Urine Ketones Urine Blood Urine Nitrite Urine Bilirubin Urine Urobilinogen Ur Leukocyte Esterase Urine Microscopic RBC Ur Squamous Epith Cells Urine Bacteria SARS CoV-2 RNA Rapid KEVIN Positive H 06/30/21 06/30/21 06/30/21 13:48 18:23 21:30 WBC RBC Hgb Hct MCV MCH MCHC RDW Coeff of [place] Plt Count Immature Gran % (Auto) Neut % (Auto) Lymph % (Auto) [place] % (Auto) Eos % (Auto) Baso % (Auto) Neut # (Auto) Lymph # (Auto) [place] # (Auto) Eos # (Auto) Baso # (Auto) Immature Gran # (Auto) Neutrophils % (Manual) Lymphocytes % (Manual) Monocytes % (Manual) Myelocytes % Anisocytosis PT INR Puncture Site Base Excess O2 Saturation ABG pH ABG pCO2 ABG pO2 ABG HCO3 ABG Total CO2 Vladimir Test Hemoglobin Oxyhemoglobin Carboxyhemoglobin Total Hemoglobin O2 Delivery Device Oxygen Liter Flow FiO2 % Sodium Potassium Chloride Carbon Dioxide Anion Gap BUN Creatinine Estimated GFR (MDRD) BUN/Creatinine Ratio Glucose Lactic Acid 0.80 Calcium Ferritin Total Bilirubin AST ALT Alkaline Phosphatase Lactate Dehydrogenase Total Creatine Kinase 137.1 H CK-MB (CK-2) 1.420 CK-MB (CK-2) % 1.0300 Troponin I < 0.012 C-Reactive Prot, Quant Total Protein Albumin Globulin Albumin/Globulin Ratio D-Dimer Urine Color Yellow Urine Clarity Clear Urine pH 7.0 Ur Specific [place] 1.010 Urine Protein Negative Urine Glucose (UA) Negative Urine Ketones 3+ H Urine Blood Trace-lysed Urine Nitrite Negative Urine Bilirubin Negative Urine Urobilinogen 1.0 H Ur Leukocyte Esterase Negative Urine Microscopic RBC 0-2 Ur Squamous Epith Cells 10-20 Urine Bacteria 1+ SARS CoV-2 RNA Rapid KEVIN 07/01/21 07/01/21 07/01/21 04:40 04:45 04:45 WBC 2.02 L RBC 4.20 Hgb 11.3 L Hct 34.5 L MCV 82.1 MCH 26.9 L MCHC 32.8 RDW Coeff of [place] 14.6 Plt Count 229 Immature Gran % (Auto) Neut % (Auto) Lymph % (Auto) [place] % (Auto) Eos % (Auto) Baso % (Auto) Neut # (Auto) Lymph # (Auto) [place] # (Auto) Eos # (Auto) Baso # (Auto) Immature Gran # (Auto) Neutrophils % (Manual) 53.0 Lymphocytes % (Manual) 27.0 Monocytes % (Manual) 18.0 H Myelocytes % 2.0 H Anisocytosis Not present PT INR Puncture Site Rrad Base Excess 1.5 O2 Saturation 97.0 ABG pH 7.53 H* ABG pCO2 29.0 L ABG pO2 80.0 L ABG HCO3 24.2 ABG Total CO2 25.1 H Vladimir Test + Hemoglobin 1.4 Oxyhemoglobin 91.3 L Carboxyhemoglobin 2.1 H Total Hemoglobin 14.5 O2 Delivery Device Cannula Oxygen Liter Flow 2.00 FiO2 % 28.0 Sodium 139.5 Potassium 3.80 Chloride 109.0 H Carbon Dioxide 25.9 Anion Gap 8.40 BUN 7.0 Creatinine 0.59 L Estimated GFR (MDRD) 107.00 BUN/Creatinine Ratio 11.86 Glucose 111.1 H Lactic Acid Calcium 8.71 Ferritin 52.60 Total Bilirubin AST ALT Alkaline Phosphatase Lactate Dehydrogenase Total Creatine Kinase CK-MB (CK-2) CK-MB (CK-2) % Troponin I C-Reactive Prot, Quant Total Protein Albumin Globulin Albumin/Globulin Ratio D-Dimer Urine Color Urine Clarity Urine pH Ur Specific [place] Urine Protein Urine Glucose (UA) Urine Ketones Urine Blood Urine Nitrite Urine Bilirubin Urine Urobilinogen Ur Leukocyte Esterase Urine Microscopic RBC Ur Squamous Epith Cells Urine Bacteria SARS CoV-2 RNA Rapid KEVIN 07/01/21 07/01/21 07/01/21 04:45 04:45 04:45 WBC RBC Hgb Hct MCV MCH MCHC RDW Coeff of [place] Plt Count Immature Gran % (Auto) Neut % (Auto) Lymph % (Auto) [place] % (Auto) Eos % (Auto) Baso % (Auto) Neut # (Auto) Lymph # (Auto) [place] # (Auto) Eos # (Auto) Baso # (Auto) Immature Gran # (Auto) Neutrophils % (Manual) Lymphocytes % (Manual) Monocytes % (Manual) Myelocytes % Anisocytosis PT 9.5 INR 0.91 Puncture Site Base Excess O2 Saturation ABG pH ABG pCO2 ABG pO2 ABG HCO3 ABG Total CO2 Vladimir Test Hemoglobin Oxyhemoglobin Carboxyhemoglobin Total Hemoglobin O2 Delivery Device Oxygen Liter Flow FiO2 % Sodium Potassium Chloride Carbon Dioxide Anion Gap BUN Creatinine Estimated GFR (MDRD) BUN/Creatinine Ratio Glucose Lactic Acid Calcium Ferritin Total Bilirubin AST ALT Alkaline Phosphatase Lactate Dehydrogenase 339 H Total Creatine Kinase CK-MB (CK-2) CK-MB (CK-2) % Troponin I C-Reactive Prot, Quant 30 H Total Protein Albumin Globulin Albumin/Globulin Ratio D-Dimer 1004.72 H Urine Color Urine Clarity Urine pH Ur Specific [place] Urine Protein Urine Glucose (UA) Urine Ketones Urine Blood Urine Nitrite Urine Bilirubin Urine Urobilinogen Ur Leukocyte Esterase Urine Microscopic RBC Ur Squamous Epith Cells Urine Bacteria SARS CoV-2 RNA Rapid KEVIN 07/01/21 07/02/21 07/02/21 08:15 04:30 04:30 WBC 5.45 RBC 4.36 Hgb 11.5 L Hct 36.5 L MCV 83.7 MCH 26.4 L MCHC 31.5 L RDW Coeff of [place] 14.6 Plt Count 266 Immature Gran % (Auto) 0.6 Neut % (Auto) 70.6 Lymph % (Auto) 20.0 [place] % (Auto) 8.6 Eos % (Auto) 0.0 Baso % (Auto) 0.2 Neut # (Auto) 3.9 Lymph # (Auto) 1.1 [place] # (Auto) 0.5 Eos # (Auto) 0.0 Baso # (Auto) 0.0 Immature Gran # (Auto) 0.0 Neutrophils % (Manual) Lymphocytes % (Manual) Monocytes % (Manual) Myelocytes % Anisocytosis PT 9.8 INR 0.94 Puncture Site Base Excess O2 Saturation ABG pH ABG pCO2 ABG pO2 ABG HCO3 ABG Total CO2 Vladimir Test Hemoglobin Oxyhemoglobin Carboxyhemoglobin Total Hemoglobin O2 Delivery Device Oxygen Liter Flow FiO2 % Sodium 140.6 Potassium 3.68 Chloride 108.2 H Carbon Dioxide 25.9 Anion Gap 10.18 BUN 7.5 Creatinine 0.60 Estimated GFR (MDRD) 105.00 BUN/Creatinine Ratio 12.50 Glucose 97.8 Lactic Acid Calcium 8.78 Ferritin Total Bilirubin 0.42 AST 34.4 D ALT 31.2 Alkaline Phosphatase 78.8 Lactate Dehydrogenase Total Creatine Kinase CK-MB (CK-2) CK-MB (CK-2) % Troponin I C-Reactive Prot, Quant Total Protein 6.93 Albumin 3.80 Globulin 3.13 Albumin/Globulin Ratio 1.21 D-Dimer Urine Color Urine Clarity Urine pH Ur Specific [place] Urine Protein Urine Glucose (UA) Urine Ketones Urine Blood Urine Nitrite Urine Bilirubin Urine Urobilinogen Ur Leukocyte Esterase Urine Microscopic RBC Ur Squamous Epith Cells Urine Bacteria SARS CoV-2 RNA Rapid KEVIN 1207/02/21 07/02/21 04:30 04:30 04:30 WBC RBC Hgb Hct MCV MCH MCHC RDW Coeff of [place] Plt Count Immature Gran % (Auto) Neut % (Auto) Lymph % (Auto) [place] % (Auto) Eos % (Auto) Baso % (Auto) Neut # (Auto) Lymph # (Auto) [place] # (Auto) Eos # (Auto) Baso # (Auto) Immature Gran # (Auto) Neutrophils % (Manual) Lymphocytes % (Manual) Monocytes % (Manual) Myelocytes % Anisocytosis PT INR Puncture Site Base Excess O2 Saturation ABG pH ABG pCO2 ABG pO2 ABG HCO3 ABG Total CO2 Vladimir Test Hemoglobin Oxyhemoglobin Carboxyhemoglobin Total Hemoglobin O2 Delivery Device Oxygen Liter Flow FiO2 % Sodium 140.3 Potassium 3.50 Chloride 109.8 H Carbon Dioxide 26.0 Anion Gap 8.00 BUN 12.5 Creatinine 0.70 Estimated GFR (MDRD) 88.00 BUN/Creatinine Ratio 17.85 Glucose 87.9 Lactic Acid Calcium 8.75 Ferritin 46.00 Total Bilirubin 0.30 AST 25.7 ALT 30.1 Alkaline Phosphatase 67.8 Lactate Dehydrogenase Total Creatine Kinase CK-MB (CK-2) CK-MB (CK-2) % Troponin I C-Reactive Prot, Quant 16 H Total Protein 6.47 Albumin 3.52 Globulin 2.95 Albumin/Globulin Ratio 1.19 D-Dimer 770.68 H Urine Color Urine Clarity Urine pH Ur Specific [place] Urine Protein Urine Glucose (UA) Urine Ketones Urine Blood Urine Nitrite Urine Bilirubin Urine Urobilinogen Ur Leukocyte Esterase Urine Microscopic RBC Ur Squamous Epith Cells Urine Bacteria SARS CoV-2 RNA Rapid KEVIN 07/02/21 07/03/21 07/03/21 06:37 05:25 05:25 WBC 3.68 L RBC 4.16 L Hgb 11.0 L Hct 34.3 L MCV 82.5 MCH 26.4 L MCHC 32.1 RDW Coeff of [place] 14.5 Plt Count 264 Immature Gran % (Auto) 0.5 Neut % (Auto) 59.4 Lymph % (Auto) 28.5 [place] % (Auto) 11.1 H Eos % (Auto) 0.0 Baso % (Auto) 0.5 Neut # (Auto) 2.2 Lymph # (Auto) 1.1 [place] # (Auto) 0.4 Eos # (Auto) 0.0 Baso # (Auto) 0.0 Immature Gran # (Auto) 0.0 Neutrophils % (Manual) Lymphocytes % (Manual) Monocytes % (Manual) Myelocytes % Anisocytosis PT INR Puncture Site Lbrac Base Excess 1.8 O2 Saturation 95.1 ABG pH 7.46 H ABG pCO2 36.0 ABG pO2 72.0 L ABG HCO3 25.6 ABG Total CO2 26.7 H Vladimir Test Hemoglobin 0.5 Oxyhemoglobin 94.6 L Carboxyhemoglobin 2.1 H Total Hemoglobin 9.3 L O2 Delivery Device Cannula Oxygen Liter Flow 2.00 FiO2 % Sodium 139.0 Potassium 3.66 Chloride 110.3 H Carbon Dioxide 20.7 L Anion Gap 11.66 BUN 10.8 Creatinine 0.55 L Estimated GFR (MDRD) 116.00 BUN/Creatinine Ratio 19.63 Glucose 94.2 Lactic Acid Calcium 8.59 Ferritin 46.60 Total Bilirubin 0.38 AST 20.7 ALT 24.8 Alkaline Phosphatase 62.2 Lactate Dehydrogenase Total Creatine Kinase CK-MB (CK-2) CK-MB (CK-2) % Troponin I C-Reactive Prot, Quant Total Protein 6.46 Albumin 3.45 L Globulin 3.01 Albumin/Globulin Ratio 1.14 D-Dimer Urine Color Urine Clarity Urine pH Ur Specific [place] Urine Protein Urine Glucose (UA) Urine Ketones Urine Blood Urine Nitrite Urine Bilirubin Urine Urobilinogen Ur Leukocyte Esterase Urine Microscopic RBC Ur Squamous Epith Cells Urine Bacteria SARS CoV-2 RNA Rapid KEVIN 07/03/21 07/03/21 07/03/21 06:27 06:57 06:57 WBC RBC Hgb Hct MCV MCH MCHC RDW Coeff of [place] Plt Count Immature Gran % (Auto) Neut % (Auto) Lymph % (Auto) [place] % (Auto) Eos % (Auto) Baso % (Auto) Neut # (Auto) Lymph # (Auto) [place] # (Auto) Eos # (Auto) Baso # (Auto) Immature Gran # (Auto) Neutrophils % (Manual) Lymphocytes % (Manual) Monocytes % (Manual) Myelocytes % Anisocytosis PT 10.0 INR 0.96 Puncture Site L brach Base Excess 0.3 O2 Saturation 96.5 ABG pH 7.45 ABG pCO2 35.0 ABG pO2 82.0 L ABG HCO3 24.3 ABG Total CO2 25.4 H Vladimir Test Y Hemoglobin 0.6 Oxyhemoglobin 94.9 L Carboxyhemoglobin 2.1 H Total Hemoglobin 14.0 O2 Delivery Device Cannula Oxygen Liter Flow 3.00 FiO2 % Sodium Potassium Chloride Carbon Dioxide Anion Gap BUN Creatinine Estimated GFR (MDRD) BUN/Creatinine Ratio Glucose Lactic Acid Calcium Ferritin Total Bilirubin AST ALT Alkaline Phosphatase Lactate Dehydrogenase Total Creatine Kinase CK-MB (CK-2) CK-MB (CK-2) % Troponin I C-Reactive Prot, Quant Total Protein Albumin Globulin Albumin/Globulin Ratio D-Dimer 1533.33 H Urine Color Urine Clarity Urine pH Ur Specific [place] Urine Protein Urine Glucose (UA) Urine Ketones Urine Blood Urine Nitrite Urine Bilirubin Urine Urobilinogen Ur Leukocyte Esterase Urine Microscopic RBC Ur Squamous Epith Cells Urine Bacteria SARS CoV-2 RNA Rapid KEVIN 07/04/21 07/04/21 07/05/21 07:30 09:12 05:39 WBC RBC Hgb Hct MCV MCH MCHC RDW Coeff of [place] Plt Count Immature Gran % (Auto) Neut % (Auto) Lymph % (Auto) [place] % (Auto) Eos % (Auto) Baso % (Auto) Neut # (Auto) Lymph # (Auto) [place] # (Auto) Eos # (Auto) Baso # (Auto) Immature Gran # (Auto) Neutrophils % (Manual) Lymphocytes % (Manual) Monocytes % (Manual) Myelocytes % Anisocytosis PT 10.8 10.4 INR 1.04 1.00 Puncture Site Base Excess O2 Saturation ABG pH ABG pCO2 ABG pO2 ABG HCO3 ABG Total CO2 Vladimir Test Hemoglobin Oxyhemoglobin Carboxyhemoglobin Total Hemoglobin O2 Delivery Device Oxygen Liter Flow FiO2 % Sodium 140.6 Potassium 3.35 L Chloride 107.5 H Carbon Dioxide 27.6 Anion Gap 8.85 BUN 12.0 Creatinine 0.66 Estimated GFR (MDRD) 94.00 BUN/Creatinine Ratio 18.18 Glucose 89.3 Lactic Acid Calcium 8.70 Ferritin Total Bilirubin 0.32 AST 20.8 ALT 25.5 Alkaline Phosphatase 66.3 Lactate Dehydrogenase Total Creatine Kinase CK-MB (CK-2) CK-MB (CK-2) % Troponin I C-Reactive Prot, Quant Total Protein 6.41 Albumin 3.46 L Globulin 2.95 Albumin/Globulin Ratio 1.17 D-Dimer Urine Color Urine Clarity Urine pH Ur Specific [place] Urine Protein Urine Glucose (UA) Urine Ketones Urine Blood Urine Nitrite Urine Bilirubin Urine Urobilinogen Ur Leukocyte Esterase Urine Microscopic RBC Ur Squamous Epith Cells Urine Bacteria SARS CoV-2 RNA Rapid KEVIN 07/05/21 07/05/21 07/05/21 05:39 05:39 05:39 WBC 4.83 RBC 4.10 L Hgb 10.9 L Hct 34.1 L MCV 83.2 MCH 26.6 L MCHC 32.0 RDW Coeff of [place] 14.4 Plt Count 376 Immature Gran % (Auto) 0.8 Neut % (Auto) 60.3 Lymph % (Auto) 28.8 [place] % (Auto) 9.3 Eos % (Auto) 0.6 Baso % (Auto) 0.2 Neut # (Auto) 2.9 Lymph # (Auto) 1.4 [place] # (Auto) 0.5 Eos # (Auto) 0.0 Baso # (Auto) 0.0 Immature Gran # (Auto) 0.0 Neutrophils % (Manual) Lymphocytes % (Manual) Monocytes % (Manual) Myelocytes % Anisocytosis PT INR Puncture Site Base Excess O2 Saturation ABG pH ABG pCO2 ABG pO2 ABG HCO3 ABG Total CO2 Vladimir Test Hemoglobin Oxyhemoglobin Carboxyhemoglobin Total Hemoglobin O2 Delivery Device Oxygen Liter Flow FiO2 % Sodium 140.3 Potassium 3.59 Chloride 108.2 H Carbon Dioxide 27.7 Anion Gap 7.99 BUN 12.6 Creatinine 0.67 Estimated GFR (MDRD) 92.00 BUN/Creatinine Ratio 18.80 Glucose 85.4 Lactic Acid Calcium 8.93 Ferritin Total Bilirubin 0.33 AST 26.1 ALT 25.3 Alkaline Phosphatase 65.7 Lactate Dehydrogenase Total Creatine Kinase CK-MB (CK-2) CK-MB (CK-2) % Troponin I C-Reactive Prot, Quant Total Protein 6.63 Albumin 3.64 Globulin 2.99 Albumin/Globulin Ratio 1.21 D-Dimer 841.36 H Urine Color Urine Clarity Urine pH Ur Specific [place] Urine Protein Urine Glucose (UA) Urine Ketones Urine Blood Urine Nitrite Urine Bilirubin Urine Urobilinogen Ur Leukocyte Esterase Urine Microscopic RBC Ur Squamous Epith Cells Urine Bacteria SARS CoV-2 RNA Rapid KEVIN 07/06/21 07/06/21 05:14 05:14 WBC 5.50 RBC 3.95 L Hgb 10.5 L Hct 32.5 L MCV 82.3 MCH 26.6 L MCHC 32.3 RDW Coeff of [place] 14.3 Plt Count 373 Immature Gran % (Auto) 0.5 Neut % (Auto) 63.4 Lymph % (Auto) 26.4 [place] % (Auto) 8.9 Eos % (Auto) 0.4 Baso % (Auto) 0.4 Neut # (Auto) 3.5 Lymph # (Auto) 1.5 [place] # (Auto) 0.5 Eos # (Auto) 0.0 Baso # (Auto) 0.0 Immature Gran # (Auto) 0.0 Neutrophils % (Manual) Lymphocytes % (Manual) Monocytes % (Manual) Myelocytes % Anisocytosis PT INR Puncture Site Base Excess O2 Saturation ABG pH ABG pCO2 ABG pO2 ABG HCO3 ABG Total CO2 Vladimir Test Hemoglobin Oxyhemoglobin Carboxyhemoglobin Total Hemoglobin O2 Delivery Device Oxygen Liter Flow FiO2 % Sodium 139.0 Potassium 3.70 Chloride 105.0 Carbon Dioxide 30.0 Anion Gap 7.70 BUN 12.0 Creatinine 0.70 Estimated GFR (MDRD) 88.00 BUN/Creatinine Ratio 17.14 Glucose 87.0 Lactic Acid Calcium 8.50 Ferritin Total Bilirubin 0.40 AST 19.0 ALT 24.0 Alkaline Phosphatase 55.0 Lactate Dehydrogenase Total Creatine Kinase CK-MB (CK-2) CK-MB (CK-2) % Troponin I C-Reactive Prot, Quant Total Protein 6.00 L Albumin 3.20 L Globulin 2.80 Albumin/Globulin Ratio 1.14 D-Dimer Urine Color Urine Clarity Urine pH Ur Specific [place] Urine Protein Urine Glucose (UA) Urine Ketones Urine Blood Urine Nitrite Urine Bilirubin Urine Urobilinogen Ur Leukocyte Esterase Urine Microscopic RBC Ur Squamous Epith Cells Urine Bacteria SARS CoV-2 RNA Rapid KEVIN CTA chest IMPRESSION: 1. No pulmonary embolus. 2. Extensive bilateral pneumonia, consistent with COVID-19. 3. Right hilar lymphadenopathy likely reactive. 4. Hepatosplenomegaly. 5. Benign bilateral adrenal adenomas. Education Provided to Patient and Family: COVID infection Follow-ups: PCP next week Discharge Disposition: Home Hospital Course: 1. COVID pneumonia with hypoxia. Required supplemental oxygen, small amounts to maintain O2 sat over 92%. Treated with Regeneron, steroids, abx, and albuterol prn. On day of discharge - passed 3 step oxygen test and sat in RA remained 92 or higher. VSS. Lungs clear. 2. Elevated D-dimer. Associated with COVID. No clinical evidence of DVT. CTA chest revealed no PE. 3. Pedal edema - mild and chronic, related to body habitus. No tx required. Physical Exam - Alert, NAD, High BMI, VSS, afeb. O2 sat 93-96 RA. HEENT - WNL Heart RRR without m Lungs - dec. BS but clear. Abd - soft Ext - mild pedal edema Neuro - intact Skin - WNL Plan: D/C home. Out of quarantine. Rx albuterol MDI for use prn. No other med. Diet and activity as tolerated. Recheck with PCP next week. Exam of patient [id number] and discharge preparation required 30 minutes.
== END 2021-07-06 14:02 | disposition home or self-care (01) | DRG 177 ==
LOC: ED 13:14 → SCU 15:22
PROVIDERS: ADMIT Emergency Medicine Emergency Medical Services; ATTEND Emergency Medicine
DX: U07.1 COVID-19; R60.0 Localized edema; Z99.81 Dependence on supplemental oxygen; R79.1 Abnormal coagulation profile; J12.82 Pneumonia due to coronavirus disease 2019

== ENCOUNTER 2021-07-28 07:17 | Inpatient (IN) ==
[2021-07-28] MEDS ORDERED: CARDIZEM INJ IVP STA (07:44)
[2021-07-28 07:59] LABS: BASOPHILS % (AUTO) 0.5 % (0.0-3.0); EOSINOPHILS # (AUTO) 0.2 K/ul (0.0-0.7); EOSINOPHILS % (AUTO) 4.1 % (0.0-7.0); HEMATOCRIT 39.3 % (37.0-47.0); HEMOGLOBIN 12.8 g/dl (12.0-16.0); IMMATURE GRANULOCYTE % (AUTO) 0.5 % (0.0-5.0); LYMPHOCYTES # (AUTO) 1.6 K/uL (0.60-3.4); LYMPHOCYTES % (AUTO) 26.6 (10.0-50.0); MEAN CORPUSCULAR HEMOGLOBIN 27.2 pg (27.0-31.0); MEAN CORPUSCULAR HGB CONC 32.6 (31.8-35.4); MEAN CORPUSCULAR VOLUME 83.4 fl (81.0-99.0); MONOCYTES # (AUTO) 0.6 K/uL (0.4-2.0); MONOCYTES % (AUTO) 9.3 (0-10); NEUTROPHILS # (AUTO) 3.5 K/ul (2.0-6.9); PLATELET COUNT 314 10^3/uL (140-440); RDW COEFFICIENT OF VARIATION 16.4 % (11.6-14.8); RED BLOOD COUNT 4.71 10^6/ul (4.20-5.40)
--- NOTE | 2021-07-28 08:09 | DI ---
EXAM: Chest one-view. HISTORY: Tachycardia. COMPARISON: 07/02/2021 chest x-ray. FINDINGS: Interval improved aeration involving the bilateral pulmonary opacities. The cardiac silh ouette is normal in size. There is no pulmonary edema present. There is no pleural effusion identif ied. There is no acute osseous abnormality. IMPRESSION: Improved aeration with minimal residual bibasilar pneumonia. No new acute cardiopulmona ry process.
[2021-07-28 08:10] LABS: ALANINE AMINOTRANSFERASE 22.4 U/L (0-35); ALBUMIN 4.38 g/dL (3.5-5.0); ALKALINE PHOSPHATASE 85.3 U/L (38-126); ASPARTATE AMINO TRANSFERASE 26.7 U/L (14-36); BILIRUBIN,TOTAL 0.45 mg/dL (0.2-1.3); BLOOD UREA NITROGEN 15.6 mg/dL (7-17); CALCIUM 9.86 mg/dL (8.4-10.2); CARBON DIOXIDE 24.6 mmol/L (22-30.0); CHLORIDE 107.8 mmol/L (98-107); CREATINE KINASE 55.4 U/L (30-135); GLUCOSE 108.9 mg/dL (74-106); SODIUM 139.6 mmol/L (134.5-145); TOTAL PROTEIN 7.48 g/dL (6.3-8.2)
[2021-07-28] MEDS: CARDIZEM 125 MG in SODIUM CHLORIDE 100ML 100 ML IV SCH ×2 (08:10→18:58)
--- NOTE | 2021-07-28 08:10 | ED.PDOC ---
General ED Provider: Dr. ALEXANDER ALVARADO Chief Complaint: Palpitations Stated Complaint: my heart was racing this am---recent covid pneumonia--out of quarantine since jul 08 Time Seen by Provider: 07/28/21 07:28 Mode of Arrival: Walk-In Information Source: Patient Exam Limitations: No limitations Primary Care Provider: ANNABELLA MOURA MD Nursing and Triage Documentation Reviewed and Agree: Yes Does patient meet sepsis criteria?: No System Inflammatory Response Syndrome: Pulse >90 BPM Sepsis Protocol: For patient's 13 years and over: Temp is 96.8 and below OR 101 and greater Pulse >90 BPM Resp >20/minute Acutely Altered Mental Status Are patient's symptoms suggestive of a new infection, such as: -Pneumonia -Skin, Soft Tissue -Endocarditis -UTI -Bone, Joint Infection -Implantable Device -Acute Abdominal Infection -Wound Infection -Meningitis -Blood Stream Catheter Infection -Unknown Cardiovascular Complaint Exam Palpitations Complaint/Exam Onset/Duration: this am 5:30 Symptoms Are: Still present Timing: Constant Initial Severity: Mild Current Severity: Moderate Character: Reports Fast, Irregular and Pounding Aggravating: Reports None Alleviating: Reports None Associated Signs and Symptoms: Reports Chest pain and Shortness of breath Related Surgical History: Reports None Pulmonary Embolism Risk Factors: Reports None Atrial Fibrillation Risk Factors: Reports None Thyroid Exam: Normal Differential Diagnoses: Paroxysmal SVT and Other Quality Indicators for AMI: EKG in 10min. Quality Indicators for Cardiac Chest Pain: EKG in 10min. Quality Indicator For Non-Traumatic Chest Pain/Syncope: EKG Performed Review of Systems Review Of Systems Constitutional: Reports No symptoms Eyes: Reports No symptoms Ears, Nose, Mouth, Throat: Reports No symptoms Respiratory: Reports Short of air Cardiac: Reports Chest pain, Irregular heart rate and Palpitations GI: Reports No symptoms : Reports No symptoms Musculoskeletal: Reports No symptoms Skin: Reports No symptoms Neurological: Reports No symptoms Endocrine: Reports No symptoms Hematologic/Lymphatic: Reports No symptoms All Other Systems: Reviewed and Negative [facility] Medical History Bronchitis Obesity Osteoarthritis of right knee Family History FATHER Cancer Mother Cancer Diabetes Hypertension CHF (congestive heart failure) Social History Smoking and tobacco status: Never smoker Second hand smoke exposure: No Alcohol intake: never Surgical History Hx of tonsillectomy Female Reproductive History Menstrual Hx Hysterectomy: No Hx Tubal Ligation: No Physical Exam Physical Exam Appearance: Reports Well-appearing Ill-appearing: None Pain Distress: None Eyes: Reports MIGNON, EOMI and Conjunctiva clear ENT: Reports Ears normal, Nose normal and Oropharynx normal Neck: Supple Respiratory: Reports Airway patent, Breath sounds clear and Breath sounds equal Cardiovascular: Reports Irregular rhythm and Tachycardia GI/: Reports Soft, Nontender, No masses, Bowel sounds normal and No Organomegaly Musculoskeletal: Reports Normal strength, ROM intact, No edema and No calf tenderness Skin: Reports Warm, Dry and Normal color Neurological: Reports Sensation intact, Motor intact, Reflexes intact, Cranial nerves intact, Alert and Oriented Psychiatric: Reports Affect appropriate, Mood appropriate and Anxious Interpretation Radiology Interpretation Radiology Interpretation By: Radiologist Radiology Results: Negative Exam Interpreted: Portable CXR Xray Comments: improved cxr appearance(recent covid pneumonia) EKG Interpretation Time of EKG #1: 08:10 Rate: Tachy Rhythm: Other Ectopy: None [place]: NL ST Segment: Normal Interpretation: afib with rvr Re-Evaluation Re-Evaluation Time of Re-Evaluation: 08:45 Status: Improved Vital Signs Stable: Yes Pain Level: 0 Appearance: NAD Lungs: Clear Skin: Warm and Dry Neuro: Alert and Oriented X3 CV: RRR Critical Care Note Critical Care Note Total Critical Care Time (mins): 30 Course Course Hematology/Chemistry: 07/28/21 07:55 07/28/21 07:55 Orders, Labs, Meds: Lab Review 07/28/21 07/28/21 07/28/21 07:45 07:55 07:55 WBC 5.90 RBC 4.71 Hgb 12.8 Hct 39.3 MCV 83.4 MCH 27.2 MCHC 32.6 RDW Coeff of [place] 16.4 H Plt Count 314 Immature Gran % (Auto) 0.5 Neut % (Auto) 59.0 Lymph % (Auto) 26.6 [place] % (Auto) 9.3 Eos % (Auto) 4.1 Baso % (Auto) 0.5 Neut # (Auto) 3.5 Lymph # (Auto) 1.6 [place] # (Auto) 0.6 Eos # (Auto) 0.2 Baso # (Auto) 0.0 Immature Gran # (Auto) 0.0 Sodium 139.6 Potassium 4.30 Chloride 107.8 H Carbon Dioxide 24.6 Anion Gap 11.50 BUN 15.6 Creatinine 0.80 Estimated GFR (MDRD) 75.00 BUN/Creatinine Ratio 19.50 Glucose 108.9 H Calcium 9.86 Total Bilirubin 0.45 AST 26.7 ALT 22.4 Alkaline Phosphatase 85.3 Total Creatine Kinase 55.4 Troponin I < 0.012 Total Protein 7.48 Albumin 4.38 Globulin 3.10 Albumin/Globulin Ratio 1.41 TSH 1.860 Free T4 D-Dimer SARS CoV-2 RNA Rapid KEVIN Negative 07/28/21 07/28/21 07:55 07:55 WBC RBC Hgb Hct MCV MCH MCHC RDW Coeff of [place] Plt Count Immature Gran % (Auto) Neut % (Auto) Lymph % (Auto) [place] % (Auto) Eos % (Auto) Baso % (Auto) Neut # (Auto) Lymph # (Auto) [place] # (Auto) Eos # (Auto) Baso # (Auto) Immature Gran # (Auto) Sodium Potassium Chloride Carbon Dioxide Anion Gap BUN Creatinine Estimated GFR (MDRD) BUN/Creatinine Ratio Glucose Calcium Total Bilirubin AST ALT Alkaline Phosphatase Total Creatine Kinase Troponin I Total Protein Albumin Globulin Albumin/Globulin Ratio TSH Free T4 1.12 D-Dimer 764.71 H SARS CoV-2 RNA Rapid KEVIN Orders Category Date Time Status EKG-(ED ONLY) Stat CARDIO 07/28/21 07:34 Completed NPO REMINDER: IMAGING ONCE CARE 07/28/21 08:41 Active ED ALL SOURCE INTELLIGENCE TECHNICIAN APPLIED .ONCE EMERGENCY 07/28/21 07:34 Active ED IV/MEDIPORT/POWERPORT .ONCE EMERGENCY 07/28/21 07:34 Active CBC W/ AUTO DIFF Stat LAB 07/28/21 07:55 Completed COMPREHENSIVE METABOLIC PANEL Stat LAB 07/28/21 07:55 Completed CREATINE KINASE Stat LAB 07/28/21 07:55 Completed D-DIMER Stat LAB 07/28/21 07:55 Completed FREE T4 (FREE THYROXINE) Stat LAB 07/28/21 07:55 Completed TROPONIN I Stat LAB 07/28/21 07:55 Completed TSH [THYROID STIMULATING HORMONE] Stat LAB 07/28/21 07:55 Completed 0.9 % Sodium Chloride [Saline Flush] MEDS 07/28/21 07:34 Active 1 syr IVF PRN PRN Diltiazem HCl [Cardizem Inj] MEDS 07/28/21 07:44 Discontinued 10 mg IVP ONCE STA Diltiazem HCl [Cardizem] 125 mg MEDS 07/28/21 08:00 Active 0.9 % Sodium Chloride [Sodium Chloride 100Ml] [address] CHEST PE PROTOCOL Stat RADS 07/28/21 08:41 Ordered CXR [CHEST, 1V AP ONLY] Stat RADS 07/28/21 07:35 Completed Medications Generic Name Dose Route Start Last Admin Trade Name Freq PRN Reason Stop Dose Admin Diltiazem HCl 125 mg/ Sodium 125 mls @ 5 mls/hr 07/28/21 08:00 07/28/21 08:10 Chloride IV 5 mg/hr TITRATION HEATHER 5 mls/hr Administration Protocol 5 MG/HR Sodium Chloride 1 syr 07/28/21 07:34 07/28/21 08:12 0.9% Sodium Chloride 10 Ml Disp.Syrin IVF 1 syr PRN PRN Administration To flush IV Discontinued Medications Generic Name Dose Route Start Last Admin Trade Name Freq PRN Reason Stop Dose Admin Diltiazem HCl 10 mg 07/28/21 07:44 07/28/21 08:11 Diltiazem Hcl Inj 25 Mg/5 Ml Vial IVP 07/28/21 07:45 10 mg ONCE STA Administration Vital Signs: Temp Pulse Resp BP Pulse Ox 07/28/21 08:23 94 H 20 121/76 07/28/21 07:19 97.5 F L 84 22 153/82 H 98 LOGAN Risk Score LOGAN Risk Score: Risk Score Odds of by 30D 0 0.1 (0.1-0.2) 1 0.3 (0.2-0.3) 2 0.4 (0.3-0.5) 3 0.7 (0.6-0.9) 4 1.2 (1.0-1.5) 5 2.2 (1.9-2.6) 6 3.0 (2.5-3.6) 7 4.8 (3.8-6.1) Discharge Plan Discharge Patient Disposition: ADMITTED INPATIENT Discharge Problem: Atrial fibrillation with RVR Prescriptions: No Action albuterol sulfate 90 mcg/actuation HFA aerosol inhaler 2 puff inhalation QID PRN (Reason: shortness of breath or wheezing) Qty: 8.5 0RF ED Provider: ALEXANDER CHOW Condition: Good Physician Progress Note: []
[2021-07-28 08:39] LABS: TROPONIN I < 0.012 ng/ml (0.0000-0.120)
[2021-07-28] MEDS ORDERED: NITROSTAT SL PRN (08:47)
[2021-07-28] MEDS ORDERED: ATROPINE SULFATE PFS IVP PRN (08:47)
[2021-07-28] MEDS ORDERED: TESSALON PERLES PO PRN (08:55)
--- NOTE | 2021-07-28 09:17 | CT ---
EXAM: CT Angiogram Chest. HISTORY: Dyspnea. Atrial fibrillation. Elevated D-dimer. COMPARISON: 07/03/2021. Radiograph earlier the same day. TECHNIQUE: Multiple axial images of the chest were obtained following intravenous administration of 75 mL Omnipaque 315, low osmolar. Images were reformatted in the sagittal and coronal plane. 3-D an d maximum intensity projection reformatted images were created on an independent workstation. FINDINGS: No pulmonary arterial filling defect. Heart size normal. No pericardial effusion. Calcified and noncalcified mediastinal and hilar lymph nodes. The largest noncalcified lymph node me asures 1.2 cm in the right hilum on axial image 57 decreased in size from prior CT. Ground-glass nodules seen throughout both lungs, greater peripherally, which have decreased from prio r study. No new opacity. No pleural effusion or pneumothorax. Limited images of the upper abdomen demonstrate fatty infiltration of the liver, duodenal diverticulu m and stable bilateral adrenal nodules. Small hiatal hernia. No acute osseous abnormality detected. IMPRESSION: 1. No pulmonary embolus. 2. Bilateral pneumonia, improved from 07/03/2021. 3. Right hilar lymphadenopathy, decreased. All CT scans are performed using dose optimization techniques as appropriate to the performed exam an d include at least one of the following: Automated exposure control, adjustment of the mA and/or kV according t o size, and the use of iterative reconstruction technique.
--- NOTE | 2021-07-28 09:18 | PCM ---
Chief Complaint Chief Complaint: my heart was racing History of Present Illness History of Present Illness: This is a 51 yr old lady with recent covid 19 pneumonia (out of quarantine) who presented to the ed with 2 hrs of racing heart rate. She was found to have afib with rvr controlled with cardizem drip. Review of Systems Constitutional: Reports No symptoms Eyes: Reports No symptoms Ears: Reports No symptoms Nose: Reports No symptoms Throat: Reports No symptoms Mouth: Reports No symptoms Respiratory: Reports Cough Cardiovascular: Reports Chest pain and Palpitations Gastrointestinal: Reports No symptoms Genitourinary: Reports No symptoms Neurological: Reports No symptoms Musculoskeletal: Reports No symptoms Skin: Reports No symptoms Immunology: Reports No symptoms Hematology: Reports No symptoms Endocrine: Reports No symptoms Psychiatric: Reports No symptoms Habits: Reports Tobacco use Allergies Allergies Allergy/AdvReac Type Severity Reaction Status Date / Time No Known Allergies Allergy Verified 07/28/21 07:27 [facility] Medical History Bronchitis Obesity Osteoarthritis of right knee Surgical History Hx of tonsillectomy Family History FATHER Cancer Mother Cancer Diabetes Hypertension CHF (congestive heart failure) Social History Smoking and tobacco status: Never smoker Second hand smoke exposure: No Alcohol intake: never Medications Medications: Medications Generic Name Dose Route Start Last Admin Trade Name Freq PRN Reason Stop Dose Admin Acetaminophen 650 mg 07/28/21 08:47 Acetaminophen 325 Mg Tablet PO Q4H PRN Mild Pain Apixaban 5 mg 07/28/21 09:00 Apixaban 5 Mg Tab PO BID HEATHER Atropine Sulfate 0.5 mg 07/28/21 08:47 Atropine Sulfate Inj 1 Mg/10 Ml Disp.Syrin IVP ONCE PRN Symptomatic Bradycardia Benzonatate 200 mg 07/28/21 08:55 Benzonatate 100 Mg Capsule PO TID PRN Cough Diltiazem HCl 125 mg/ Sodium 125 mls @ 5 mls/hr 07/28/21 08:00 07/28/21 08:10 Chloride IV 5 mg/hr TITRATION HEATHER 5 mls/hr Administration Protocol 5 MG/HR Nitroglycerin 0.4 mg 07/28/21 08:47 Nitroglycerin 0.4 Mg Tab.Subl SL Q5MIN X 3 DOSES PRN Chest Pain Sodium Chloride 1 syr 07/28/21 07:34 07/28/21 08:12 0.9% Sodium Chloride 10 Ml Disp.Syrin IVF 1 syr PRN PRN Administration To flush IV Sodium Chloride 1 syr 07/28/21 13:00 0.9% Sodium Chloride 10 Ml Disp.Syrin IVF Q8HR HEATHER Body Composition Height: 5 ft 8 in Weight: 308 lb Body Mass Index (BMI): 46.8 Vital Signs Temperature: 97.5 F Pulse Rate: 94 Respiratory Rate: 20 Blood Pressure: 121/76 O2 Sat by Pulse Oximetry: 98 Physical Examination Appearance: Reports Well-appearing Ill-appearing: Not Applicable Pain Distress: Not Applicable Eyes: Reports MIGNON, EOMI and Conjunctiva clear ENT: Reports Ears normal, Nose normal and Oropharynx normal Neck: Supple Respiratory: Reports Airway patent, Breath sounds clear, Breath sounds equal, Breath sounds diminished and Respirations nonlabored Cardiovascular: Reports Irregular rhythm and Tachycardia GI/: Reports Soft, Nontender and No masses Musculoskeletal: Reports Normal strength, ROM intact, No edema and No calf tenderness Skin: Reports Warm, Dry and Normal color Neurological: Reports Sensation intact, Motor intact, Reflexes intact, Cranial nerves intact, Alert and Oriented Psychiatric: Reports Affect appropriate, Mood appropriate and Anxious Lab/Tests/Diagnostic Imaging Lab/Tests/Diagnostic Imaging: Lab Review 07/28/21 07/28/21 07/28/21 07:45 07:55 07:55 WBC 5.90 RBC 4.71 Hgb 12.8 Hct 39.3 MCV 83.4 MCH 27.2 MCHC 32.6 RDW Coeff of [place] 16.4 H Plt Count 314 Immature Gran % (Auto) 0.5 Neut % (Auto) 59.0 Lymph % (Auto) 26.6 [place] % (Auto) 9.3 Eos % (Auto) 4.1 Baso % (Auto) 0.5 Neut # (Auto) 3.5 Lymph # (Auto) 1.6 [place] # (Auto) 0.6 Eos # (Auto) 0.2 Baso # (Auto) 0.0 Immature Gran # (Auto) 0.0 Sodium 139.6 Potassium 4.30 Chloride 107.8 H Carbon Dioxide 24.6 Anion Gap 11.50 BUN 15.6 Creatinine 0.80 Estimated GFR (MDRD) 75.00 BUN/Creatinine Ratio 19.50 Glucose 108.9 H Calcium 9.86 Total Bilirubin 0.45 AST 26.7 ALT 22.4 Alkaline Phosphatase 85.3 Total Creatine Kinase 55.4 Troponin I < 0.012 Total Protein 7.48 Albumin 4.38 Globulin 3.10 Albumin/Globulin Ratio 1.41 TSH 1.860 Free T4 D-Dimer SARS CoV-2 RNA Rapid KEVIN Negative 07/28/21 07/28/21 07:55 07:55 WBC RBC Hgb Hct MCV MCH MCHC RDW Coeff of [place] Plt Count Immature Gran % (Auto) Neut % (Auto) Lymph % (Auto) [place] % (Auto) Eos % (Auto) Baso % (Auto) Neut # (Auto) Lymph # (Auto) [place] # (Auto) Eos # (Auto) Baso # (Auto) Immature Gran # (Auto) Sodium Potassium Chloride Carbon Dioxide Anion Gap BUN Creatinine Estimated GFR (MDRD) BUN/Creatinine Ratio Glucose Calcium Total Bilirubin AST ALT Alkaline Phosphatase Total Creatine Kinase Troponin I Total Protein Albumin Globulin Albumin/Globulin Ratio TSH Free T4 1.12 D-Dimer 764.71 H SARS CoV-2 RNA Rapid KEVIN Orders Category Date Time Status ADMIT PATIENT INPATIENT .TO [facility] (MONITORED BED) ADMISSION 07/28/21 08:46 Completed ECHOCARDIOGRAM 2D-M MODE Routine CARDIO 07/28/21 08:51 Ordered EKG-(ED ONLY) Stat CARDIO 07/28/21 07:34 Completed EKG-(IP & OP ONLY) DAILY CARDIO 07/29/21 06:00 Ordered EKG-(IP & OP ONLY) DAILY CARDIO 07/30/21 06:00 Ordered EKG-(IP & OP ONLY) DAILY CARDIO 07/30/21 06:00 Stop Req OXYGEN Routine CARDIO 07/28/21 08:48 Ordered ACTIVITY .BR with BRP CARE 07/28/21 08:48 Active INTAKE & OUTPUT Q8HR CARE 07/28/21 08:48 Active IP: INSERT SALINE LOCK ONCE CARE 07/28/21 08:48 Active NOTIFY PHYSICIAN OF CONSULT ONCE CARE 07/28/21 08:52 Active NPO REMINDER: IMAGING ONCE CARE 07/28/21 08:41 Completed TELEMETRY MONITORING TELE CARE 07/28/21 08:46 Active VITAL SIGNS Q8HR CARE 07/28/21 08:48 Active CONSULT DOCTOR [PHYSICIAN CONSULTATION] [CONS] Routine CONSULTS 07/28/21 08:52 Ordered REGULAR DIET DIETARY 07/28/21 Lunch Ordered ED MANAGER DRUG SAFETY APPLIED .ONCE EMERGENCY 07/28/21 07:34 Active ED IV/MEDIPORT/POWERPORT .ONCE EMERGENCY 07/28/21 07:34 Active CBC W/ AUTO DIFF DAILY@0600 LAB 07/29/21 06:00 Ordered CBC W/ AUTO DIFF DAILY@0600 LAB 07/30/21 06:00 Ordered CBC W/ AUTO DIFF Stat LAB 07/28/21 07:55 Completed COMPREHENSIVE METABOLIC PANEL Stat LAB 07/28/21 07:55 Completed CREATINE KINASE Stat LAB 07/28/21 07:55 Completed D-DIMER Stat LAB 07/28/21 07:55 Completed FREE T4 (FREE THYROXINE) Stat LAB 07/28/21 07:55 Completed PT WITH INR DAILY@0600 LAB 07/29/21 06:00 Ordered PT WITH INR DAILY@0600 LAB 07/30/21 06:00 Ordered TROPONIN I Q8H LAB 07/28/21 15:00 Ordered TROPONIN I Q8H LAB 07/28/21 23:00 Ordered TROPONIN I Stat LAB 07/28/21 07:55 Completed TSH [THYROID STIMULATING HORMONE] Stat LAB 07/28/21 07:55 Completed URINALYSIS C & S IF INDICATED Stat LAB 07/28/21 08:54 Ordered 0.9 % Sodium Chloride [Saline Flush] MEDS 07/28/21 07:34 Active 1 syr IVF PRN PRN 0.9 % Sodium Chloride [Saline Flush] MEDS 07/28/21 13:00 Active 1 syr IVF Q8HR Acetaminophen [Tylenol] MEDS 07/28/21 08:47 Active 650 mg PO Q4H PRN Apixaban [Eliquis] MEDS 07/28/21 09:00 Active 5 mg PO BID Atropine Sulfate Inj [Atropine Sulfate Pfs] MEDS 07/28/21 08:47 Active 0.5 mg IVP ONCE PRN Benzonatate [Tessalon Perles] MEDS 07/28/21 08:55 Active 200 mg PO TID PRN Diltiazem HCl [Cardizem Inj] MEDS 07/28/21 07:44 Discontinued 10 mg IVP ONCE STA Diltiazem HCl [Cardizem] 125 mg MEDS 07/28/21 08:00 Active 0.9 % Sodium Chloride [Sodium Chloride 100Ml] 100 ml IV TITRATION Nitroglycerin [Nitrostat] MEDS 07/28/21 08:47 Active 0.4 mg SL Q5MIN X 3 DOSES PRN RESUSCITATION STATUS Routine OTHERS 07/28/21 08:[address] CHEST PE PROTOCOL Stat RADS 07/28/21 08:41 Taken CXR [CHEST, 1V AP ONLY] Stat RADS 07/28/21 07:35 Completed Medications Generic Name Dose Route Start Last Admin Trade Name Freq PRN Reason Stop Dose Admin Acetaminophen 650 mg 07/28/21 08:47 Acetaminophen 325 Mg Tablet PO Q4H PRN Mild Pain Apixaban 5 mg 07/28/21 09:00 Apixaban 5 Mg Tab PO BID HEATHER Atropine Sulfate 0.5 mg 07/28/21 08:47 Atropine Sulfate Inj 1 Mg/10 Ml Disp.Syrin IVP ONCE PRN Symptomatic Bradycardia Benzonatate 200 mg 07/28/21 08:55 Benzonatate 100 Mg Capsule PO TID PRN Cough Diltiazem HCl 125 mg/ Sodium 125 mls @ 5 mls/hr 07/28/21 08:00 07/28/21 08:10 Chloride IV 5 mg/hr TITRATION HEATHER 5 mls/hr Administration Protocol 5 MG/HR Nitroglycerin 0.4 mg 07/28/21 08:47 Nitroglycerin 0.4 Mg Tab.Subl SL Q5MIN X 3 DOSES PRN Chest Pain Sodium Chloride 1 syr 07/28/21 07:34 07/28/21 08:12 0.9% Sodium Chloride 10 Ml Disp.Syrin IVF 1 syr PRN PRN Administration To flush IV Sodium Chloride 1 syr 07/28/21 13:00 0.9% Sodium Chloride 10 Ml Disp.Syrin IVF Q8HR HEATHER Discontinued Medications Generic Name Dose Route Start Last Admin Trade Name Freq PRN Reason Stop Dose Admin Diltiazem HCl 10 mg 07/28/21 07:44 07/28/21 08:11 Diltiazem Hcl Inj 25 Mg/5 Ml Vial IVP 07/28/21 07:45 10 mg ONCE STA Administration Assessment (1) Atrial fibrillation with RVR: Status: Acute Code(s): I48.91 - Unspecified atrial fibrillation SNOMED Code(s): 896534878501148 (2) Obesity: Status: Acute Code(s): E66.9 - Obesity, unspecified SNOMED Code(s): 533844420 Assessment: cta chest pending Plan Plan: admit to hospitalist, rate control talia dalton, anticoagulation with eliquis, check echo and consultation with cardiology---see orders
[2021-07-28 09:40] LABS: BILIRUBIN,URINE Negative (NEGATIVE); CLARITY,URINE Clear (CLEAR); COLOR,URINE Yellow (YELLOW); GLUCOSE, URINE (UA) Negative (NEGATIVE); KETONES,URINE Negative (NEGATIVE); LEUKOCYTE ESTERASE ,URINE Negative (NEGATIVE); NITRITE,URINE Negative (NEGATIVE); PROTEIN,URINE Negative (NEGATIVE); URINE, BLOOD Negative (NEGATIVE); UROBILINOGEN,URINE 0.2 (0.2)
[2021-07-28] MEDS: ELIQUIS PO SCH ×2 (09:51→21:00)
[2021-07-28 09:53] VITALS: BMI 45.4
[2021-07-28] MEDS ORDERED: LASIX TAB PO STA (12:46)
[2021-07-28] MEDS: CARDIZEM PO SCH ×2 (13:05→21:01)
[2021-07-29 04:54] LABS: BASOPHILS % (AUTO) 0.7 % (0.0-3.0); EOSINOPHILS # (AUTO) 0.4 K/ul (0.0-0.7); EOSINOPHILS % (AUTO) 6.3 % (0.0-7.0); HEMATOCRIT 36.3 % (37.0-47.0); HEMOGLOBIN 11.7 g/dl (12.0-16.0); IMMATURE GRANULOCYTE % (AUTO) 0.5 % (0.0-5.0); LYMPHOCYTES # (AUTO) 1.3 K/uL (0.60-3.4); LYMPHOCYTES % (AUTO) 22.9 (10.0-50.0); MEAN CORPUSCULAR HEMOGLOBIN 27.4 pg (27.0-31.0); MEAN CORPUSCULAR HGB CONC 32.2 (31.8-35.4); MONOCYTES # (AUTO) 0.6 K/uL (0.4-2.0); NEUTROPHILS # (AUTO) 3.4 K/ul (2.0-6.9); NEUTROPHILS % (AUTO) 59.6 % (42.2-75.2); PLATELET COUNT 307 10^3/uL (140-440); RDW COEFFICIENT OF VARIATION 16.9 % (11.6-14.8); RED BLOOD COUNT 4.27 10^6/ul (4.20-5.40); WHITE BLOOD COUNT 5.72 K/ul (4.6-10.2)
[2021-07-29 05:05] LABS: CHOLESTEROL 194.1 mg/dL (0-200); HDL CHOLESTEROL 64.5 mg/dL (35-80); TRIGLYCERIDES 75.1 mg/dL (0-150)
[2021-07-29 05:11] LABS: PROTHROMBIN TIME 9.7 SEC (9.3-11.0)
[2021-07-29 05:37] LABS: THYROID STIMULATING HORMONE 2.56 uIU/L (0.465-4.68)
[2021-07-29] MEDS: CARDIZEM 125 MG in SODIUM CHLORIDE 100ML 100 ML IV SCH (09:03)
[2021-07-29] MEDS: ELIQUIS PO SCH ×2 (09:06→20:34)
[2021-07-29] MEDS: CARDIZEM PO SCH ×2 (09:06→20:34)
--- NOTE | 2021-07-29 09:38 | PCM.PROG ---
Attending Provider: ATTENDING PROVIDER: Dr. SAM CHERRY MD This patient is seen with Ruby Rodriguez, Nurse Practitioner. DATE OF SERVICE: 07/29/21 SUBJECTIVE: This 51 year old /WHITE F was hospitalized 07/28/21. The patient is resting comfortably. She has been in normal sinus rhythm since last night. Tolerated discontinuation of Cardizem drip. Rate is normal and reports feeling better. T4 TSH within normal limits. REVIEW OF SYSTEMS: CONSTITUTIONAL: No night sweats. Fatigue. No fever or chills. HEENT: Eyes: No visual changes. No eye pain. No eye discharge. ENT: No runny nose. No epistaxis. No sinus pain. No odynophagia. No congestion. RESPIRATORY: No cough, no congestion. No hemoptysis. No shortness of breath. CARDIOVASCULAR: No angina symptoms. No CHF symptoms. No atypical chest pain for CAD. No palpitations. No orthopnea.. GASTROINTESTINAL: No abdominal pain. No nausea or vomiting. No diarrhea or constipation. No hematemesis. No hematochezia. GENITOURINARY: No urgency. No frequency. No dysuria. No hematuria. No obstructive symptoms. No discharge. No pain. No significant abnormal bleeding. MUSCULOSKELETAL: No musculoskeletal pain; no joint swelling. NEUROLOGICAL: Awake, alert, oriented to time, place and person. No headache. No neck pain. No syncope. No seizures. No dizziness. PSYCHIATRIC: Not anxious. No depression. No suicidal thoughts. No homicidal thoughts. SKIN: No rash. No lesions. No wounds. ENDOCRINE: No unexplained weight loss. No weight gain. HEMATOLOGIC/LYMPHATIC: No anemia. No purpura. No petechiae. No prolonged or excessive bleeding. No palpable lymph nodes. PHYSICAL EXAMINATION: GENERAL: The patient is awake, alert and oriented, lying in bed in no distress. VITAL SIGNS: Temperature 97.6 F, Pulse 77, Respiratory Rate 18, BP 125/81, Pulse Ox 100% HEENT: Head normocephalic, atraumatic. Eyes: Extraocular muscles are intact. Pupils are equal, round and reactive to light and accommodation. Ears: No lesions. Nose appeared normal. Throat: No exudate or erythema. NECK: Supple. No JVD, no carotid bruit. No lymphadenopathy or thyromegaly. LUNGS: Diminished breath sounds. Clear to auscultation. Percussion note normal. Chest symmetrical. HEART: S1, S2, no S3. No murmurs. No cyanosis or clubbing. No ascites. Pulses: Dorsalis pedis and posterior tibial pulses +1 to +2 both sides. ABDOMEN: Soft. Non-tender. Bowel sounds active. No CVA tenderness. No mass felt. EXTREMITIES: No edema. Full range of motion of all extremities, equal. NEUROLOGIC: No focal deficit. Cranial nerves II through XII are grossly intact. No headache. No double vision. SKIN: Not dry. Intact. Turgor-normal. LYMPHATIC: No palpable lymph nodes/no lymphedema. MUSCULOSKELETAL: Normal joints with no swelling. Muscle tone is normal. LAB REVIEW: 07/29/21 04:35 07/28/21 07:55 07/29/21 04:35: Free T4 1.11 07/29/21 04:35: Triglycerides 75.1, Cholesterol 194.1, LDL Cholesterol, Calc 115, VLDL Cholesterol 15, HDL Cholesterol 64.5, Cholesterol/HDL Ratio 3.0 L, TSH 2.560 07/29/21 04:35: PT 9.7, INR 0.93 07/29/21 04:35: WBC 5.72, RBC 4.27, Hgb 11.7 L, Hct 36.3 L, MCV 85.0, MCH 27.4, MCHC 32.2, RDW Coeff of [place] 16.9 H, Plt Count 307, Immature Gran % (Auto) 0.5, Neut % (Auto) 59.6, Lymph % (Auto) 22.9, [place] % (Auto) 10.0, Eos % (Auto) 6.3, Baso % (Auto) 0.7, Neut # (Auto) 3.4, Lymph # (Auto) 1.3, [place] # (Auto) 0.6, Eos # (Auto) 0.4, Baso # (Auto) 0.0, Immature Gran # (Auto) 0.0 07/28/21 23:00: Troponin I < 0.012 07/28/21 15:10: Troponin I < 0.012 07/28/21 08:50: Urine Color Yellow, Urine Clarity Clear, Urine pH 7.0, Ur Specific [place] 1.010, Urine Protein Negative, Urine Glucose (UA) Negative, Urine Ketones Negative, Urine Blood Negative, Urine Nitrite Negative, Urine Bilirubin Negative, Urine Urobilinogen 0.2, Ur Leukocyte Esterase Negative 07/28/21 07:55: D-Dimer 764.71 H 07/28/21 07:55: Free T4 1.12 07/28/21 07:55: Troponin I < 0.012, TSH 1.860 07/28/21 07:45: SARS CoV-2 RNA Rapid KEVIN Negative ASSESSMENT: Please see below. 1. New onset atrial fibrillation 2. Recent COVID infection 06/30 3. Obesity PLAN: 1. 2D echo today 2. Continue Cardizem and Eliquis 3. No work until released. Plan and coordination of the patient's care discussed in the presence of Reservations Agent and nurse. SCRIBED BY: Ari LEZAMA scribed while in presence of service performed by Dr. Hoffman/Ruby Rodriguez APRN on 07/29/21 ([id number])
[2021-07-29] MEDS: TYLENOL PO PRN (10:18)
--- NOTE | 2021-07-29 14:17 | US ---
EXAM: Bilateral lower extremity venous Doppler duplex HISTORY: Concern for DVT with bilateral lower extremity swelling. COMPARISON: Same day CT PE TECHNIQUE: Sonographic and Doppler evaluation of the bilateral lower extremity vessels from the comm on femoral through the anterior tibial veins were obtained. Augmentation and compression techniques were also performed. Color Doppler, wave spectral evaluation and gama scale imaging were provided. FINDINGS: There is spontaneous Doppler flow seen in the bilateral lower extremity veins from the com mon femoral through the anterior tibial veins. There is normal compression and augmentation througho ut the lower extremity veins. There is normal color Doppler and wave spectral evaluation. Sonograph ic appearance of the soft tissues are normal. IMPRESSION: No lower extremity thrombus
--- NOTE | 2021-07-29 21:05 | PCM.PROG ---
Date Seen by Provider: 07/29/21 Time Seen by Provider: 20:56 Subjective: No chest pain or palpitationa Objective: Vitals: T=97.6 F, P=97, R=18, GX=687/77, SPO2=98 HEENT: []wnl Neck: []supple Lungs: []chest was clear CVS: []both HS were heard. irregularly irregular pulse. Abdomen: []benign Extremities: []no marked ankle edema. no calf swelling or tenderness. Neurological: []non-focal Skin: []no acute abnormality Lab/Tests/Diagnostic Imaging: [] (1) Atrial fibrillation with RVR: Status: Acute Code(s): I48.91 - Unspecified atrial fibrillation SNOMED Code(s): 051155787134211 Plan: 1. Continue PO Cardizem. 2. Dr Hoffman review on 07/30/2021.
[2021-07-30 05:31] LABS: BASOPHILS % (AUTO) 0.5 % (0.0-3.0); EOSINOPHILS # (AUTO) 0.3 K/ul (0.0-0.7); HEMATOCRIT 37.9 % (37.0-47.0); HEMOGLOBIN 12.1 g/dl (12.0-16.0); IMMATURE GRANULOCYTE % (AUTO) 0.5 % (0.0-5.0); LYMPHOCYTES # (AUTO) 1.3 K/uL (0.60-3.4); LYMPHOCYTES % (AUTO) 20.5 (10.0-50.0); MEAN CORPUSCULAR HEMOGLOBIN 26.9 pg (27.0-31.0); MEAN CORPUSCULAR HGB CONC 31.9 (31.8-35.4); MEAN CORPUSCULAR VOLUME 84.4 fl (81.0-99.0); MONOCYTES # (AUTO) 0.6 K/uL (0.4-2.0); NEUTROPHILS % (AUTO) 64.5 % (42.2-75.2); PLATELET COUNT 326 10^3/uL (140-440); RDW COEFFICIENT OF VARIATION 16.7 % (11.6-14.8); RED BLOOD COUNT 4.49 10^6/ul (4.20-5.40)
[2021-07-30 05:36] VITALS: BP 126/80; TEMP 98.3
[2021-07-30 05:44] LABS: ALANINE AMINOTRANSFERASE 23.8 U/L (0-35); ALBUMIN 4.15 g/dL (3.5-5.0); ALKALINE PHOSPHATASE 66.6 U/L (38-126); BILIRUBIN,TOTAL 0.52 mg/dL (0.2-1.3); CALCIUM 9.33 mg/dL (8.4-10.2); CHLORIDE 106.4 mmol/L (98-107); CREATININE 0.68 mg/dL (0.60-1.30); GLUCOSE 97.7 mg/dL (74-106); POTASSIUM 4.32 mmol/L (3.5-5.1); SODIUM 136.5 mmol/L (134.5-145); TOTAL PROTEIN 7.09 g/dL (6.3-8.2)
[2021-07-30 05:57] LABS: PROTHROMBIN TIME 9.5 SEC (9.3-11.0)
--- NOTE | 2021-07-30 08:01 | ECHO2D ---
Date of Exam: 07/28/2021 Ordering Physician: HOSPITALIST--DR. ALVARADO Room #: [id number] Reason for Echo: NEW ONSET ATRIAL FIBRILLATION M-Mode Normal Adult Results LV Dimensions Normal Adult Results AoV Opening excursions >1.6 >1.6 LVEDD-base- 3.5-5.8 4.8 Ao root dimensions 2.0-3.7 3.1 LVESD-base- 3.1-4.6 L. Atrium dimensions 1.9-3.8 3.1 Post. Wall thickness 0.8-1.1 1.1 IV septum (thickness) 0.7-1.2 1.2 Post. Wall excursion 0.72-1.3 NORMAL Septal motion NORMAL Systolic motion R. Ventricular cavity 1.5-2.0 NORMAL LVEF 60% 60% Paradoxical septal wall motion NORMAL 2-D : 2-D M Mode Echocardiogram was performed using apical four chamber and left parasternal long and short axis views. Mitral, tricuspid and aortic valves appear to be normal. Contractility of the left ventricle seems to be normal, so is the cavity size. Left atrial cavity size and aortic root appear to be normal. There is no pericardial effusion. There is no thrombus noted in the left ventricle or left atrial cavity. M-MODE: MV: NORMAL AV: NORMAL TV: NORMAL PV: CHAMBER SIZE: NORMAL WALL MOTION: NORMAL PERICARDIUM: NORMAL INTERPRETATION: 1. BORDERLINE LEFT VENTRICLE HYPERTROPHY 2. NORMAL VALVES 3. NORMAL LEFT VENTRICLE CONTRACTILITY--NORMAL LEFT VENTRICLE SIZE 4. LEFT ATRIAL SIZE--NORMAL MTDD
[2021-07-30] MEDS: CARDIZEM PO SCH (09:15)
[2021-07-30] MEDS: TYLENOL PO PRN (09:16)
[2021-07-30] MEDS: ELIQUIS PO SCH (09:16)
--- NOTE | 2021-07-30 09:37 | PCM.PROG ---
Attending Provider: ATTENDING PROVIDER: Dr. ALEXANDER LUCIO This patient is seen with Ruby Rodriguez, Nurse Practitioner. DATE OF SERVICE: 07/30/21 SUBJECTIVE: This 51 year old /WHITE F was hospitalized 07/28/21. The patient has been normal sinus at least 24 hours. Denies any shortness of breath or palpitations. Heart rate has been controlled. PFT showed only mild disease. Echo showed normal LA cavity. REVIEW OF SYSTEMS: CONSTITUTIONAL: No night sweats. No fatigue, malaise, lethargy. No fever or chills. HEENT: Eyes: No visual changes. No eye pain. No eye discharge. ENT: No runny nose. No epistaxis. No sinus pain. No odynophagia. No congestion. RESPIRATORY: No cough, no congestion. No hemoptysis. No shortness of breath. CARDIOVASCULAR: No angina symptoms. No CHF symptoms. No atypical chest pain for CAD. No palpitations. No orthopnea.. GASTROINTESTINAL: No abdominal pain. No nausea or vomiting. No diarrhea or constipation. No hematemesis. No hematochezia. GENITOURINARY: No urgency. No frequency. No dysuria. No hematuria. No obstructive symptoms. No discharge. No pain. No significant abnormal bleeding. MUSCULOSKELETAL: No musculoskeletal pain; no joint swelling. NEUROLOGICAL: Awake, alert, oriented to time, place and person. No headache. No neck pain. No syncope. No seizures. No dizziness. PSYCHIATRIC: Not anxious. No depression. No suicidal thoughts. No homicidal thoughts. SKIN: No rash. No lesions. No wounds. ENDOCRINE: No unexplained weight loss. No weight gain. HEMATOLOGIC/LYMPHATIC: No anemia. No purpura. No petechiae. No prolonged or exc essive bleeding. No palpable lymph nodes. PHYSICAL EXAMINATION: GENERAL: The patient is awake, alert and oriented, lying/sitting in bed in no distress. VITAL SIGNS: Temperature 98.3 F, Pulse 76, Respiratory Rate 20, BP 126/80, Pulse Ox 98% HEENT: Head normocephalic, atraumatic. Eyes: Extraocular muscles are intact. Pupils are equal, round and reactive to light and accommodation. Ears: No lesions. Nose appeared normal. Throat: No exudate or erythema. NECK: Supple. No JVD, no carotid bruit. No lymphadenopathy or thyromegaly. LUNGS: Clear to auscultation. Percussion note normal. Chest symmetrical. HEART: S1, S2, no S3. No murmurs. No cyanosis or clubbing. No ascites. Pulses: Dorsalis pedis and posterior tibial pulses +1 to +2 both sides. ABDOMEN: Soft. Non-tender. Bowel sounds active. No CVA tenderness. No mass felt. EXTREMITIES: No edema. Full range of motion of all extremities, equal. NEUROLOGIC: No focal deficit. Cranial nerves II through XII are grossly intact. No headache. No double vision. SKIN: Not dry. Intact. Turgor-normal. LYMPHATIC: No palpable lymph nodes/no lymphedema. MUSCULOSKELETAL: Normal joints with no swelling. Muscle tone is normal. LAB REVIEW: 07/30/21 05:05 07/30/21 05:05 07/30/21 05:05: Sodium 136.5, Potassium 4.32, Chloride 106.4, Carbon Dioxide 25.0, Anion Gap 9.42, BUN 10.0, Creatinine 0.68, Estimated GFR (MDRD) 91.00, BUN/Creatinine Ratio 14.70, Glucose 97.7, Calcium 9.33, Total Bilirubin 0.52, AST 24.0, ALT 23.8, Alkaline Phosphatase 66.6, Total Protein 7.09, Albumin 4.15, Globulin 2.94, Albumin/Globulin Ratio 1.41 07/30/21 05:05: PT 9.5, INR 0.91 07/30/21 05:05: WBC 6.20, RBC 4.49, Hgb 12.1, Hct 37.9, MCV 84.4, MCH 26.9 L, MCHC 31.9, RDW Coeff of [place] 16.7 H, Plt Count 326, Immature Gran % (Auto) 0.5, Neut % (Auto) 64.5, Lymph % (Auto) 20.5, [place] % (Auto) 9.0, Eos % (Auto) 5.0, Baso % (Auto) 0.5, Neut # (Auto) 4.0, Lymph # (Auto) 1.3, [place] # (Auto) 0.6, Eos # (Auto) 0.3, Baso # (Auto) 0.0, Immature Gran # (Auto) 0.0 ASSESSMENT: Please see below. 1. New onset Atrial fibrillation 2. Recent COVID 19 with COVID pneumonia 3. Obesity PLAN: 1. Discharge home 2. Will follow her for the next visit 3. Continue Eliquis and Cardizem. Discussed risks of bleeding associated with Eliquis along with no NSAIDS. Plan and coordination of the patient's care discussed in the presence of Deputy Program Manager and nurse. SCRIBED BY: LANCE NGUYEN Book Reviewer scribed while in presence of service performed by Dr. Hoffman/Ruby Rodriguez APRN on 07/30/21 ([id number])
--- NOTE | 2021-07-31 12:52 | DS ---
DATE OF SERVICE: 07/30/21 ADMITTING DIAGNOSIS: 1. Acute atrial fibrillation with rapid ventricular response FINAL DIAGNOSIS: 1. Atrial fibrillation with rapid ventricular response, resolved-Normal sinus rhythm SUMMARY STATEMENT: This 51 year old female patient presented to the emergency room at approximately 07:02 in the morning 07/28/21 with a complaint that her heart was racing that morning. She had recently been treated for COVID pneumonia. She has been out of quarantine since June. On set of her symptoms is actually about 5:30am. They were persistent upon arrival to the ER she described her pain as being very fast, irregular and pounding. Appropriate diagnostic studies were obtained in the emergency room including EKG and cardiac profile. History and physical examination is not in the hospital chart. Diagnostic lab studies were obtained including a CBC, Cardiac profile and Chemistry analysis which were unremarkable. COVID test was negative. In the ER she was treated with IV fluids and Diltiazem 10mg IV push once. She was then placed on a Cardizem drip 125mg and 100cc of normal saline. Diagnostic lab studies included an Echocardiogram which revealed the Tricuspid mitral and aortic valves appearing normal. Contractility of the left ventricle was normal. The cavity size appeared to be normal. There were no pericardial effusion. No thrombus noted in the left ventricle or left atrial cavity. Left atrial cavity size and aortic root appear to be normal. There did appear to be borderline left ventricular hypertrophy. This was interrupted by Dr. Hoffman on July 30, 2021 at 8:00am. After stabilization in the emergency room was admitted to the medical floor where she was seen in followup on July 29 and by Ruby Rodriguez. This morning physical examination is conducted at the bedside. The patient was up and about in no acute distress. She was pleasant, alert, cooperative and oriented times three. Vital signs were stable. Pulmonary function test was obtained which showed only mild disease. It should be noted that the patient was in normal sinus rhythm for at least the last 24 hours without symptomatic dyspnea or chest palpitations. Physical examination today revealed the patient's laboratory studies did show electrolytes sodium 136.5, potassium 4.32 and chloride 106.4, bicarb 25.0, BUN 10, creatinine 0.68, Glucose 97.7. Her hgb 12.1, Hct 37.9. PT 9.5 and 0.91. It was felt at this time since the atrial fibrillation was controlled and back in normal sinus rhythm that she would be safe for discharge to home. She started on Eliquis to be taken daily. She was provided samples from the clinic. Plan and coordination of the patient's care was discussed in the presence of the Joy Loader and Nurse. The patient was instructed if she had any problems before her followup visit at the clinic to return to the emergency room. STELLA
--- NOTE | 2021-08-01 11:58 | CONS ---
DATE OF SERVICE: 07/29/21 CONSULT FOLLOWUP SUBJECTIVE: The patient was seen on consult with Nurse Practitioner. The patient's condition is stable. She is in sinus rhythm. Blood pressure is under control. The patient is going to have venous scan of both lower extremities because of mildly elevated D-dimer which is much lower than what it was while she was in the hospital for COVID. She does not have any calf tenderness. She has pitting edema which is dependent edema, trace. The patient is on Eliquis. She is going to be discharged home on Eliquis. Side effects of Eliquis discussed in detail with the GI bleed and intracranial bleed. Advised no non-steroidal antiinflammatory. MTDD
--- NOTE | 2021-08-01 13:07 | CONS ---
DATE OF CONSULTATION: 07/28/21 REASON FOR CONSULTATION: Paroxysmal atrial fibrillation HISTORY OF PRESENT ILLNESS: 51 year old white female came to the emergency room on 07/28/21 morning with complaint of having heart racing. The patient says that she has had this problem for past one years, usually doesn't last more than few minutes. She sits down and she feels better. This time the racing has continued for two hours. The patient was seen and examined in the ER by the ER attending and was noted to be in atrial fibrillation with rate of 135 to 140 per minute. The patient was given Cardizem IV with the drip and the patient converted to sinus rhythm. REVIEW OF SYSTEMS: CONSTITUTIONAL: No night sweats. Fatigue and weakness ever since she had COVID in June. No fever or chills. HEENT: Eyes: No visual changes. No eye pain. No eye discharge. ENT: No sinus drainage. No epistaxis. No sinus pain. No sore throat. No odynophagia. No ear pain. No congestion. RESPIRATORY: No cough, no congestion. No hemoptysis. Shortness of breath on exertion but getting better. Less of shortness of breath as time has gone by after her COVID hospitalization. CARDIOVASCULAR: No angina symptoms. No CHF symptoms. No atypical chest pain for CAD. Palpitations off and on lately. No orthopnea. GASTROINTESTINAL: No abdominal pain. No nausea or vomiting. No diarrhea or constipation. No hematemesis. No hematochezia. GENITOURINARY: No urgency. No frequency. No dysuria. No hematuria. No obstructive symptoms. No discharge. No pain. No significant abnormal bleeding. MUSCULOSKELETAL: No musculoskeletal pain. No joint swelling. NEUROLOGICAL: No headache. No neck pain. No syncope. No seizures. No dizziness. PSYCHIATRIC: Not anxious. No depression. No suicidal thoughts. No homicidal thoughts. SKIN: No rash. No lesions. No wounds. ENDOCRINE: No unexplained weight loss. No weight gain. HEMATOLOGIC/LYMPHATIC: No anemia. No purpura. No petechiae. No prolonged or excessive bleeding. No palpable lymph nodes. MEDICATIONS: Albuterol sulfate 2 puff inhalations QID PRN Zinc 50mg PO daily Pepcid 40mg PO daily Aspirin 650mg PO daily ALLERGIES: None PAST MEDICAL HISTORY/PAST SURGICAL HISTORY: FIDELIA with respiratory failure was in the hospital for a few weeks. Hospitalization in the middle of June with COVID. The patient went through difficult ways with respiratory failure. She was discharged home and hasn't seen anybody on followup. Osteoarthritis of right knee Morbid obesity The patient does not know her lipid profile status. SOCIAL/PERSONAL/FAMILY HISTORY: The patient is and lives with the . Non-smoker. No alcohol abuse. PHYSICAL EXAMINATION: VITAL SIGNS: Temperature 97.5, pulse 90, respiratory rate 20, blood pressure 120/76 and pulse ox 100% HEENT: Head normocephalic, atraumatic. Eyes: Extraocular muscles are intact. Pupils are equal, round and reactive to light and accommodation. Ears: No lesions. Nose appeared normal. Throat: No exudate or erythema. NECK: Supple. No JVD, no carotid bruit. No lymphadenopathy or thyromegaly. LUNGS: Clear to auscultation. Percussion note normal. Chest symmetrical. HEART: S1, S2, no S3. No murmurs. No cyanosis or clubbing. No ascites. Pulses: Dorsalis pedis and posterior tibial pulses +1 to +2 bilaterally. ABDOMEN: Soft. Nontender. Bowel sounds active. No CVA tenderness. No mass felt. EXTREMITIES: No edema. Full range of motion of all extremities, equal. NEUROLOGIC: No focal deficit. Cranial nerves II through XII are grossly intact. No headache, no double vision or headache. SKIN: Not dry. Intact. Turgor - normal. LYMPHATIC: No palpable lymph nodes/no lymphedema. MUSCULOSKELETAL: Normal joints with no swelling. Muscle tone is normal. LABS: D-Dimer 764 which is lower than what is was during hospitalization with COVID. Creatinine 0.8, BUN 15. T4 TSH normal. WBC 5,900, hgb 12.8, hct 39. Oxygen saturation 98% on room air. ASSESSMENT: 1. Paroxysmal atrial fibrillation CHADS II VASC SCORE 1 2. Morbid obesity 3. History of COVID 19 pneumonia with respiratory failure a month ago 4. Family history of heart disease RECOMMENDATIONS: 1. The patient was given Cardizem 10mg after that she was started on Cardizem drip. Has already been converted to sinus rhythm. Will start Cardizem 60mg PO twice a and try to taper off Cardizem drip. 2. Agreed with Eliquis 5mg twice a day 3. CHADS VASC SCORE 1 4. Eliquis discussed with side effects like GI bleed, intracranial bleed 5. We will do PFT 6. Do Lipid profile 7. EKG in the morning 8. Echocardiogram was just one which showed borderline LVH, Normal valvular structure, Normal LV cavity and left atrial cavity size. 9. Case discussed with attending hospitalist Dr. Ruiz. Plan discussed. 10. Continue telemetry 11.Counseling for patient's weight loss done. 12. The patient had 1+ to trace pedal edema will give Lasix one dose 13.Advised to elevate the legs CONDITION: Stable Thanks for referral. We will follow the patient. MTDD
== END 2021-07-30 12:30 | disposition home or self-care (01) | DRG 310 ==
LOC: ED 07:17 → MEDSURG A 09:02
PROVIDERS: ADMIT Family Medicine; ATTEND Emergency Medicine
DX: R07.9 Chest pain, unspecified; R00.0 Tachycardia, unspecified; I48.91 Unspecified atrial fibrillation; I51.7 Cardiomegaly; E66.9 Obesity, unspecified; Z86.16 Personal history of COVID-19; R22.43 Localized swelling, mass and lump, lower limb, bilateral